=== PATIENT | male | born 1970 | race Caucasian/White ===

== ENCOUNTER 2017-08-13 05:44 | Day surgery (SDC) | payer MEDICARE ==
--- NOTE | ~2017-08-13 | OP ---
PATIENT NAME: KRISTY SUOSA JR MEDICAL RECORD: [id number] :72 LOCATION:[place] ADMISSION DATE: SURGEON: JUAN A SUN MD DATE OF OPERATION: 08/13/2017 PREOPERATIVE DIAGNOSIS: End-stage renal disease and dependence on hemodialysis with insulin-dependent diabetes. POSTOPERATIVE DIAGNOSES: End-stage renal disease and dependence on hemodialysis with insulin-dependent diabetes. OPERATION PERFORMED: Creation of a left upper extremity radiocephalic wrist Jacky AV fistula. SURGEON: Juan A Sun MD ANESTHESIA: Regional nerve block and IV sedation and monitored per CERTIFIED WELLNESS PROGRAM MANAGER. PREOPERATIVE NOTE: Ms. Sousa is a 46-year-old white male diabetic with end-stage renal disease who requires long-term dialysis access. DESCRIPTION OF PROCEDURE: With the patient under regional block and sedation, in supine position, the left arm was prepped and draped in sterile manner, nitroglycerin paste was applied to the intact skin of the arm and forearm, and a Flor drain was used as a proximal venous tourniquet. The veins of his arm was then examined with a duplex ultrasound and I found that the cephalic vein at the wrist was of good caliber and patent and that he would be a suitable candidate for a radiocephalic fistula. The radial artery was noted to have considerable calcifications within the wall, but has a large lumen and good flow. A longitudinal incision was made through which the vessels were exposed and treated with topical papaverine. The artery was encircled proximally and distally with Silastic loops. The vein was fully mobilized, distally clamped and divided and beveled, and it was ligated distally with Vicryl. The vein was flushed with heparinized saline and hydrostatically distended to prepare for anastomosis. The radial artery was opened and flushed proximally and distally with heparinized saline and end to vein to side of artery anastomosis was then performed with running 7-0 Prolene. When completed, the suture line first was treated with Evicel and after satisfactory time had elapsed for the material to cure, the occluding loops and clamps were released, and excellent flow was established in the fistula and the suture line was hemostatic. The ulnar artery was patent to Doppler examination with a wide open palmar arch and a considerable reversal of flow in the palmar arch and distal radial artery. The hand remained warm and pink throughout. At least at this stage, there is no sign of ischemia. The wound was then irrigated with Ancef and gentamicin solution. Hemostasis deemed adequate, the wound was closed with interrupted inverted 3-0 Vicryl and then running intracuticular 4-0 Monocryl and Dermabond glue. It was dressed with Maxorb Ag, Tegaderm, and Cavilon skin prep and the patient awakened and taken to the recovery room. He will come back to see me in my office next week. Meanwhile going home later today after a brief observation postop, he will continue all of the same medications and renal diabetic diet, dialysis schedule, and resume activities as tolerated. He is to leave the initial operative dressing intact and he can wash over with soap and water. I will plan to remove that dressing when he sees me in the office next week. He OPERATIVE REPORT [id number] KRISTY SOUSA JR has a block which should eliminate any immediate postoperative pain for pain over the next couple of days after that wears off. I have left him a prescription for 10 [place] 5/325 tablets and plan no additional prescriptions. My expectations are that despite the radial artery calcification, there was good flow in the fistula and I believe, it will mature. We must be alert and observe for possible development of ischemic steal symptoms which might necessitate ligation of the radial artery distal to the anastomosis. TRANSINT:[id number] Voice Confirmation ID: [id number] DOCUMENT ID: [id number] JUAN A SUN MD at 1459 CC: KRISTY JACINTO MD [id number] DICTATION DATE: 08/13/17 1301 MANAGER COMMODITIES: 08/13/17 1443 [facility] 08/13/17 [facility] [address] [place] [address]
[2017-08-13 06:45] LABS: BASOPHILS 0.1 % (0-2); EOSINOPHILS 4.5 % (0-7); HEMATOCRIT 28.4 % (42.0-54.0); HEMOGLOBIN 9.6 g/dL (13.5-17.5); IMMATURE GRANULOCYTES 0.4 % (0-5); LYMPHOCYTES 11.7 % (15-50); MCH 29.1 pg (26.0-34.0); MCHC 33.8 g/dL (31.0-37.0); MCV 86.1 fL (80.0-100.0); MEAN PLATELET VOLUME 9.2 fL (7.4-10.4); MONOCYTES 4.4 % (2-11); NEUTROPHILS 78.9 % (40-80); PLATELET COUNT 148 10x3/uL (130-400); RDW 14.4 % (11.5-14.5)
[2017-08-13 07:08] LABS: ANION GAP 16.3 mmol/L (8-16); CARBON DIOXIDE 26.1 mmol/L (21.0-32.0); CREATININE - SERUM 7.3 mg/dL (0.6-1.3); POTASSIUM - SERUM 3.4 mmol/L (3.5-5.1)
[2017-08-13 07:21] LABS: APTT 31.4 SECONDS (22.8-39.4); INR 1.02 (0.85-1.17)
[2017-08-13] MEDS ORDERED: NORVASC10 MG PO (08:17)
[2017-08-13] MEDS ORDERED: COREG25 MG PO (08:17)
[2017-08-13] MEDS ORDERED: ZESTRIL10 MG PO (08:18)
[2017-08-13] MEDS ORDERED: LASIX80 MG PO (08:18)
[2017-08-13] MEDS ORDERED: RENVELA800 MG PO (08:19)
[2017-08-13] MEDS ORDERED: PROTONIX40 MG PO (08:19)
[2017-08-13] MEDS ORDERED: CARDURA4 MG PO (08:20)
[2017-08-13 08:29] VITALS: BMI 30.7
[2017-08-13] MEDS ORDERED: HYDROCODON-ACE1 EAC7 PO (12:32)
[2017-11-08] MEDS ORDERED: BAYER CHEWABLE81 MG PO (06:52)
[2017-11-08] MEDS ORDERED: FERROCITE PLUS1 CAP PO (06:53)
[2017-11-08] MEDS ORDERED: HYDROCODON-ACE1 EAC7 PO (12:20)
== END 2017-08-13 14:30 | disposition home or self-care (01) ==
LOC: D.OPS 05:44
PROVIDERS: Surgery
DX: I12.0 Hypertensive chronic kidney disease with stage 5 chronic kidney disease or end stage renal disease (principal); N18.6 End stage renal disease; Z99.2 Dependence on renal dialysis; Z01.812 Encounter for preprocedural laboratory examination

== ENCOUNTER → 2017-11-08 05:10 | Day surgery (SDC) | payer MEDICARE ==
[~2017-11-08] VITALS: Ht 167.6 cm; Wt 84.1 kg
--- NOTE | ~2017-11-08 | OP ---
PATIENT NAME: KRISTY SOUSA JR MEDICAL RECORD: [id number] :72 LOCATION:[place] ADMISSION DATE: SURGEON: JUAN A SUN MD DATE OF OPERATION: 11/08/2017 REFERRING PHYSICIAN: Kristy Smith MD PREOPERATIVE DIAGNOSES: End-stage renal disease and dependence on hemodialysis with failure to mature left radiocephalic arteriovenous fistula. OPERATION PERFORMED: Left radiocephalic AV fistulogram with balloon angioplasty of the body of the vein and the arterial anastomosis and also selective catheterization of the left radial artery and extensive balloon angioplasty of the radial artery from its origin in the brachial artery to the arterial anastomosis at the wrist. Then, open ligation of multiple diverting tributaries. SURGEON: Juan A Sun MD ANESTHESIA: General with LMA per VETERANS EMPLOYMENT REPRESENTATIVE. PREOPERATIVE NOTE: This patient has had a left radiocephalic fistula for some time, which has maintained patency and enlarged, but is still very soft and has poor arterial pressures and poor augmentation. I saw him recently at [facility] and after an angiogram recommended that he have ligation of tributaries and other indicated procedures. He is brought to the hospital today for an open procedure. DESCRIPTION OF PROCEDURE: Under general anesthesia, the patient was prepped and draped in a sterile manner and the fistula was accessed near the elbow with micropuncture technique directed distally towards the arterial anastomosis. A 6-North Korean introducer was placed. A fistulogram was performed, which revealed areas of stenosis within the draining cephalic vein between the wrist and the mid forearm with multiple large diverting tributaries which appeared to divert a significant degree of flow. Also, there was what appeared to be an arterial anastomotic stenosis and a very small distal radial artery and no filling of the proximal radial artery, proximal to the arterial anastomosis. Note, the mini stick access of the fistula was done with ultrasound guidance and a duplex ultrasound examination continued and revealed extensive calcification of the radial artery from elbow to wrist. I dilated the body of the fistula with a 7-mm angioplasty balloon and dilated the arterial anastomosis with a 4-mm diameter balloon. I was able to cross the anastomosis with a Glidewire and glide catheter and parked the catheter in the proximal radial artery and perform selective radial artery arteriogram, which revealed a very small vessel with almost no distal flow around the 5-North Korean catheter. The radial artery was subsequently dilated from its origin to the arterial anastomosis with a 4 mm diameter angioplasty balloon and repeat contrast studies revealed improved flow in a larger caliber radial artery with better flow across the arterial anastomosis into the fistula. I made 2 incisions then to expose tributaries, 3 separate large draining tributaries were multiple ligated with 2-0 silk. A few clips were necessary for hemostasis and also some Vicryl ties. The wound was irrigated with 0.25% Marcaine without epinephrine and the 2 wounds were irrigated with Marcaine and then closed with interrupted inverted 3-0 Vicryl and running intracuticular 4-0 Monocryl and Dermabond glue. The 2 incisions were then dressed with Maxorb Ag, Tegaderm, and Cavilon skin prep. The 6-North Korean OPERATIVE REPORT [id number] KRISTY SOUSA JR sheath at the mid forearm was removed and hemostasis obtained with a pursestring 4-0 Prolene suture and a period of direct pressure. That site was then dressed with an Avitene, Ultrafoam pad, Tegaderm, and Cavilon skin prep. The patient was awakened and with a functioning fistula taken to the recovery room. In the recovery room, he was noted to have a good pulse and bruit over the fistula. It was my opinion, however, that the fistula flow is at this point at least not dramatically or possibly even significantly improved and that would be due to the small caliber heavily diseased radial artery. The patient will be discharged to home today and return to see me in my office in 2 weeks. If this fistula fails or does not clinically improve with better flows and pressures, then I think we will need to consider creating a more proximal fistula or we could place a forearm graft and a delay creating a fistula in the upper arm. Blood loss was about 5 cc and unreplaced. Sponges, instruments, and needles were accounted for. No drain was used and no surgical specimen was submitted for histopathology. TRANSINT:[id number] Voice Confirmation ID: [id number] DOCUMENT ID: [id number] JUAN A SUN MD at 2050 CC: KRISTY SMITH MD [id number] DICTATION DATE: 11/08/17 1249 ENFORCEMENT SAFETY OFFICER: 11/08/17 1318 [facility] 11/08/17 [facility] [address] [place] [address]
[~2017-11-08 05:10] MED LIST: BAYER CHEWABLE81 MG PO; CARDURA4 MG PO; COREG25 MG PO; FERROCITE PLUS1 CAP PO; HYDROCODON-ACE1 EAC7 PO; LASIX80 MG PO; NORVASC10 MG PO; PROTONIX40 MG PO; RENVELA800 MG PO; ZESTRIL10 MG PO
[2017-11-08 06:27] LABS: BASOPHILS 0.2 % (0-2); EOSINOPHILS 5.1 % (0-7); HEMATOCRIT 23.5 % (42.0-54.0); HEMOGLOBIN 8.1 g/dL (13.5-17.5); IMMATURE GRANULOCYTES 0.4 % (0-5); LYMPHOCYTES 14.2 % (15-50); MCH 28.4 pg (26.0-34.0); MCHC 34.5 g/dL (31.0-37.0); MCV 82.5 fL (80.0-100.0); MEAN PLATELET VOLUME 9.1 fL (7.4-10.4); MONOCYTES 5.5 % (2-11); NEUTROPHILS 74.6 % (40-80); PLATELET COUNT 82 10x3/uL (130-400); RBC 2.85 10x6/uL (4.20-6.10); RDW 13.7 % (11.5-14.5); WBC 4.9 10x3/uL (4.8-10.8)
[2017-11-08 06:48] LABS: INR 1.06 (0.85-1.17); PROTIME 13.4 SECONDS (11.6-15.0)
[2017-11-08 06:54] VITALS: Ht 167.6 cm; Wt 84.1 kg
[2017-11-08 06:56] LABS: ANION GAP 16.7 mmol/L (8-16); CALCIUM 7.6 mg/dL (8.5-10.1); CARBON DIOXIDE 24.9 mmol/L (21.0-32.0); POTASSIUM - SERUM 3.6 mmol/L (3.5-5.1)
[2017-11-08 07:08] LABS: PLATELET ESTIMATE DECREASED
== END | disposition home or self-care (01) ==
LOC: D.OPS 05:10
PROVIDERS: Anesthesiology
DX: T82.590A Other mechanical complication of surgically created arteriovenous fistula, initial encounter (principal); N18.6 End stage renal disease; Z99.2 Dependence on renal dialysis; Z01.812 Encounter for preprocedural laboratory examination

== ENCOUNTER 2019-03-03 11:50 | Inpatient (IN) | payer MEDICARE ==
[~2019-03-03] VITALS: Ht 167.6 cm; Wt 78.6 kg
[2019-03-03] MEDS ORDERED: ZESTRIL40 MG PO (12:30)
[2019-03-03] MEDS ORDERED: HYDRALAZINE HC100 MG PO (12:31)
[2019-03-03] MEDS ORDERED: ROCALTROL0.25 MCG PO (12:32)
[2019-03-03] MEDS ORDERED: FERRIC CITRATE210 MG PO (12:34)
[2019-03-03 12:45] LABS: BASOPHILS 0.2 % (0-2); EOSINOPHILS 1.2 % (0-7); HEMATOCRIT 20.1 % (42.0-54.0); IMMATURE GRANULOCYTES 0.2 % (0-5); LYMPHOCYTES 7.9 % (15-50); MCH 28.2 pg (26.0-34.0); MCHC 33.3 g/dL (31.0-37.0); MCV 84.5 fL (80.0-100.0); MONOCYTES 4.2 % (2-11); NEUTROPHILS 86.3 % (40-80); RBC 2.38 10x6/uL (4.20-6.10); RDW 14.3 % (11.5-14.5); WBC 5.2 10x3/uL (4.8-10.8)
[2019-03-03 12:51] LABS: PLATELET COUNT 112 10x3/uL (130-400)
[2019-03-03 12:53] LABS: HEMOGLOBIN 6.7 g/dL (13.5-17.5)
[2019-03-03 13:30] LABS: ALBUMIN 2.8 g/dL (3.4-5.0); ANION GAP 16.4 mmol/L (8-16); BILIRUBIN - TOTAL 0.47 mg/dL (0.2-1.3); CALCIUM 8.6 mg/dL (8.5-10.1); CARBON DIOXIDE 29.3 mmol/L (21.0-32.0); CREATININE - SERUM 11.4 mg/dL (0.6-1.3); POTASSIUM - SERUM 4.7 mmol/L (3.5-5.1); PROTEIN - SERUM 6.5 g/dL (6.4-8.2)
[2019-03-03 13:31] VITALS: BP 189/88; BMI 29.3
[2019-03-03 13:56] LABS: APTT 31.1 SECONDS (22.8-39.4); INR 1.2 (0.85-1.17); PROTIME 14.7 SECONDS (11.6-15.0)
[2019-03-03 15:42] VITALS: BP 198/92
--- NOTE | 2019-03-03 17:56 | NUR ---
22 G PIV STARTED IN RIGHT FOREARM.
--- NOTE | 2019-03-03 19:50 | NUR ---
UNIT OF BLOOD IS BEING ADMINISTERED.
[2019-03-03 21:01] VITALS: BP 175/73
[2019-03-04] VITALS (7 sets, daily range): BP systolic 153–191; BP diastolic 50–62; Ht 167.6 cm; Wt 78.6 kg
[2019-03-04 04:26] LABS: BASOPHILS 0 % (0-2); HEMATOCRIT 21.4 % (42.0-54.0); IMMATURE GRANULOCYTES 0.2 % (0-5); LYMPHOCYTES 12.5 % (15-50); MCH 27.7 pg (26.0-34.0); MCHC 33.2 g/dL (31.0-37.0); MCV 83.6 fL (80.0-100.0); MEAN PLATELET VOLUME 8.6 fL (7.4-10.4); MONOCYTES 8.2 % (2-11); NEUTROPHILS 76.1 % (40-80); RBC 2.56 10x6/uL (4.20-6.10); RDW 14.4 % (11.5-14.5)
[2019-03-04 04:37] LABS: HEMOGLOBIN 7.1 g/dL (13.5-17.5); INR 1.19 (0.85-1.17); PLATELET COUNT 135 10x3/uL (130-400); PROTIME 14.6 SECONDS (11.6-15.0)
[2019-03-04 04:55] LABS: ALBUMIN 2.4 g/dL (3.4-5.0); BILIRUBIN - TOTAL 0.39 mg/dL (0.2-1.3); CALCIUM 8.2 mg/dL (8.5-10.1); CARBON DIOXIDE 28.8 mmol/L (21.0-32.0); CREATININE - SERUM 11.7 mg/dL (0.6-1.3); POTASSIUM - SERUM 4.8 mmol/L (3.5-5.1); PROTEIN - SERUM 6.1 g/dL (6.4-8.2)
--- NOTE | 2019-03-04 09:37 | NUR ---
SPOKE TO MAGGY HUERTA FROM SHE STATES SHE CAN DO PT'S PARACENTESIS AT AROUND 1100 AND TO DO HD AFTER. I VEBRLAIZED UNDERSTANDING AND STATED TO THEM WHAT MAGGY HUERTA STATED TO ME AND THEY VEBALIZED UNDERSTANDING. STATED THIS TO PT AND PT'S DAUGHTER AND THEY BOTH VERBALIZED UNDERSTANDING. PT STTAES HE WANTS RGULAR FOOD TRAY ONCE HE CAN EAT AGAIN. I VERBALIZED UNDERSTANDING AND STATED I WILL SPEAK WITH MD ABOUT THIS. PT VEBALIZED UNDERSTANDING. AM MEDS GIVEN PT STATES HE TAKES ALL BP MEDS ON HD DAYS.
--- NOTE | 2019-03-04 10:45 | NUR ---
PT TAKEN FOR PARACENTESIS VIA BED.
--- NOTE | 2019-03-04 11:09 | NUR ---
SPOKE WITH MARVIN RECORDS TECHNICIAN AND SHE STATES PT CAN HAVE RENAL DIET AFTER PARACENTESIS.
--- NOTE | 2019-03-04 11:48 | NUR ---
I have reviewed this patient and I concur with the Shift Assessment completed by the Licensed Practical Nurse today this shift.
--- NOTE | 2019-03-04 12:00 | NUR ---
PT RETURNED FORM PARACENTESIS. ALERT AND ORIENTED. VS STABLE. PT TO EAT THEN GO TO HD.
[2019-03-04 12:35] LABS: PROTEIN - BODY FLUID 4.4 G/DL
--- NOTE | 2019-03-04 13:24 | NUR ---
PT TAKEN TO DIALYSIS VIA WC.
--- NOTE | 2019-03-04 13:39 | NUR ---
1 UNIT OF PRBC TAKEN TO JAJA IN DIALYSIS.
[2019-03-04 14:14] LABS: MACROPHAGES BF 69 %; MESOTHELIALS BF 7 %; NEUT - BF 5 %
--- NOTE | 2019-03-04 17:24 | NUR ---
PT SITTING IN RECLINER CHAIR EATING DINNER.
--- NOTE | 2019-03-04 19:57 | NUR ---
PT CARE ASSUMED. PT IN BED RR EVEN AND UNLABORED. PT C/O HEADACHE, PROVIDED TYLENOL. NO S/S OF DISTRESS NOTED. NO FURTHER VOICED C/O OR CONCERNS. CALL LIGHT IN REACH. WILL CTM.
[2019-03-05] VITALS: BP 184/57
[2019-03-05 04:00] VITALS: BP 182/56
[2019-03-05 06:04] LABS: ANION GAP 11.7 mmol/L (8-16); CALCIUM 8.6 mg/dL (8.5-10.1); CARBON DIOXIDE 29.7 mmol/L (21.0-32.0); POTASSIUM - SERUM 4.4 mmol/L (3.5-5.1)
[2019-03-05 06:15] LABS: CREATININE - SERUM 7.9 mg/dL (0.6-1.3); PHOSPHOROUS 5.8 mg/dL (2.5-4.9)
[2019-03-05 06:19] LABS: BASOPHILS 0.2 % (0-2); EOSINOPHILS 1.5 % (0-7); HEMATOCRIT 25.5 % (42.0-54.0); HEMOGLOBIN 8.4 g/dL (13.5-17.5); IMMATURE GRANULOCYTES 0.7 % (0-5); LYMPHOCYTES 5.7 % (15-50); MCH 27.1 pg (26.0-34.0); MCHC 32.9 g/dL (31.0-37.0); MCV 82.3 fL (80.0-100.0); MEAN PLATELET VOLUME 8.7 fL (7.4-10.4); MONOCYTES 7.8 % (2-11); NEUTROPHILS 84.1 % (40-80); PLATELET COUNT 136 10x3/uL (130-400); RDW 16.3 % (11.5-14.5)
--- NOTE | 2019-03-05 07:30 | NUR ---
A/A/OX4. SITTING UP ON SIDE OF BED WITH NO COMPLAINTS OR REQUESTS VOICED. SL PATENT TO RIGHT FOREARM WITH REDNESS OR EDEMA AT SITE. ASSESSMENT COMPLETED AND WILL CONTINUE POC.
[2019-03-05 08:00] VITALS: BP 197/58
[2019-03-05 08:11] LABS: HEPATITIS C ANTIBODY 0.1 S/CO RAT (0.0-0.9)
--- NOTE | 2019-03-05 11:17 | NUR ---
STOOL SPECIMEN OBTAINED AND TAKEN TO LAB
[2019-03-05 12:00] VITALS: BP 179/82
--- NOTE | 2019-03-05 13:00 | NUR ---
SCAN OF SPLEEN AND LIVER PERFORMED.
--- NOTE | 2019-03-05 13:30 | NUR ---
I have reviewed this patient and I concur with the Shift Assessment completed by the Licensed Practical Nurse today this shift.
[2019-03-05 16:18] VITALS: BP 168/74
--- NOTE | 2019-03-05 19:26 | NUR ---
PT CARE ASSUMED. BEDSIDE SHIFT REPORT COMPLETE. PT IN BED RR EVEN AND UNLABORED ON RA. NO S/S OF DISTRESS NOTED. NO VOICED C/O OR CONCERNS NOTED AT THIS TIME. FAMILY AT BEDSIDE. CALL LIGHT IN REACH. WILL CTM.
[2019-03-05 20:00] VITALS: BP 184/84
--- NOTE | 2019-03-05 21:18 | NUR ---
PT CAME TO NURSES STATION C/O PAIN AT IV SITE. IV D/C WITH CATHETER TIP INTACT. PT REFUSES ANOTHER PIV PLACEMENT AT THIS TIME.
[2019-03-06 04:00] VITALS: BP 151/61
--- NOTE | 2019-03-06 04:10 | NUR ---
PT HAS TAKEN OFF HIS TELEMETRY AND REFUSES TO PUT BACK ON.
[2019-03-06 06:40] LABS: BASOPHILS 0 % (0-2); EOSINOPHILS 3.4 % (0-7); HEMATOCRIT 25.8 % (42.0-54.0); HEMOGLOBIN 8.4 g/dL (13.5-17.5); IMMATURE GRANULOCYTES 0.5 % (0-5); LYMPHOCYTES 7.3 % (15-50); MCH 27.2 pg (26.0-34.0); MCHC 32.6 g/dL (31.0-37.0); MCV 83.5 fL (80.0-100.0); MEAN PLATELET VOLUME 8.6 fL (7.4-10.4); NEUTROPHILS 81.8 % (40-80); PLATELET COUNT 131 10x3/uL (130-400); RBC 3.09 10x6/uL (4.20-6.10); RDW 16.2 % (11.5-14.5); WBC 5.9 10x3/uL (4.8-10.8)
--- NOTE | 2019-03-06 06:45 | NUR ---
PT CAME TO NURSES STATION AND ALERTED NURSE THAT HE IS GOING TO WALK DOWN TO CAFE WITH FRIEND.
[2019-03-06 06:53] LABS: CARBON DIOXIDE 28.6 mmol/L (21.0-32.0); CREATININE - SERUM 9.7 mg/dL (0.6-1.3); PHOSPHOROUS 6.4 mg/dL (2.5-4.9); POTASSIUM - SERUM 4.6 mmol/L (3.5-5.1)
[2019-03-06 08:16] VITALS: BP 168/63
--- NOTE | 2019-03-06 08:20 | NUR ---
PT RETURNED TO FLOOR FROM [place]FE. SHIFT ASSESSMENT PERFORMED. DENIES ANY NEEDS AT THIS TIME, WILL CONT TO FOLLOW POC
--- NOTE | 2019-03-06 09:18 | MORECARE ---
CASE MANAGEMENT DISCHARGE SUMMARY PATIENT: KRISTY SOUSA JR UNIT: [id number] ADM DATE: 03/03/19 AGE: 48 : 72 SEX: M ROOM/BED: D.2138 AUTHOR: HANS SCHAFFER PHYSICIAN: REFERRING PHYSICIAN: KRISTY JACINTO MD DATE OF SERVICE: 03/06/19 Discharge Plan Patient Name: KRISTY SOUSA Facility: [facility]:[place] : 1970 Planned Disposition: Home Anticipated Discharge Date: 03/06/19 Discharge Date: Expected LOS: 3 Initial Reviewer: [email or web address] Initial Review Date: 03/06/2019 Generated: 03/06/19 10:18 am Coverage Notice Reviewer: [id number] - Hood Acharya Notice Issued Date-Time: 03/06/2019 9:50 Notice Type: IM Discharge Notice Notice Delivered To: Patient Relationship to Patient: Balancer Name: Delivery Method: HAND - Hand Delivered Theresa Days: Prior Verbal Notification: Recipient Understood Notice: Yes Recipient Signature: Yes Med Rec Note Co-signed by Attending: Coverage Notice Comment: Patient Name: KRISTY SOUSA Page [phone] at 0918 All edits/amendments must be made on the electronic document DICTATION DATE: 03/06/19917 DRYING SUPERVISOR: LAISHA 03/06/19917 RPT#: [id number] DC DATE: STATUS: ADM IN [facility] [address] [place] [address] END OF REPORT
--- NOTE | 2019-03-06 09:25 | MORECARE ---
CASE MANAGEMENT DISCHARGE SUMMARY PATIENT: KRISTY SOUSA JR UNIT: [id number] ADM DATE: 03/03/19 AGE: 48 : 71 SEX: M ROOM/BED: D.2138 AUTHOR: HASN SCHAFFER PHYSICIAN: REFERRING PHYSICIAN: KRISTY JACINTO MD DATE OF SERVICE: 03/06/19 Discharge Plan Patient Name: KRISTY SOUSA Facility: [facility]:[place] : 1970 Planned Disposition: Home Anticipated Discharge Date: 03/06/19 Discharge Date: Expected LOS: 3 Initial Reviewer: [email or web address] Initial Review Date: 03/06/2019 Generated: 03/06/19 10:24 am DCPIA - Discharge Planning Initial Assessment Updated by ANDREW: Hood Acharya on 03/06/19 9:20 am * Is the patient Alert and Oriented? Yes * How many steps to enter\exit or inside your home? NONE * PCP [facility] * [facility] * Preadmission Environment Home with Family * ADLs Independent * Equipment None * Other Equipment [facility] - MEDICAL EQUIPMENT PROVIDER PREFERENCE * List name and contact numbers for known caregivers / representatives who currently or will assist patient after discharge: LAURI SOUSA, SPOUSE, * Verbal permission to speak to the caregivers and representatives has been obtained from the patient. Yes * Community resources currently utilized Other * Please name any agencies selected above. HOME HEMODIALYSIS, 15 HOURS PER WEEK,(3-5 DAYS PER WEEK, DEPENDING ON PT'S WEIGHT) * Additional services required to return to the preadmission environment? No * Can the patient safely return to the preadmission environment? Yes * Has this patient been hospitalized within the prior 30 days at any hospital? No Coverage Notice Reviewer: [id number] - Hood Acharya Notice Issued Date-Time: 03/06/2019 9:50 Notice Type: IM Discharge Notice Notice Delivered To: Patient Relationship to Patient: Data Developer Name: Delivery Method: HAND - Hand Delivered Theresa Days: Prior Verbal Notification: Recipient Understood Notice: Yes Recipient Signature: Yes Med Rec Note Co-signed by Attending: Coverage Notice Comment: Last DP export: 03/06/19 8:18 a Patient Name: KRISTY SOUSA Page [phone] at 0925 All edits/amendments must be made on the electronic document DICTATION DATE: 03/06/19923 BILINGUAL SALES CONSULTANT: LAISHA 03/06/19923 RPT#: [id number] DC DATE: STATUS: ADM IN [facility] [address] [place] [address] END OF REPORT
--- NOTE | 2019-03-06 09:32 | MORECARE ---
CASE MANAGEMENT DISCHARGE SUMMARY PATIENT: KRISTY SOUSA JR UNIT: [id number] ADM DATE: 03/03/19 AGE: 48 : 71 SEX: M ROOM/BED: D.5401 AUTHOR: HANS SCHAFFER PHYSICIAN: REFERRING PHYSICIAN: KRISTY JACINTO MD DATE OF SERVICE: 03/06/19 Discharge Plan Patient Name: KRISTY SOUSA Facility: [facility]:[place] : 1970 Planned Disposition: Home Anticipated Discharge Date: 03/06/19 Discharge Date: Expected LOS: 3 Initial Reviewer: [email or web address] Initial Review Date: 03/06/2019 Generated: 03/06/19 10:32 am Comments DCP- Discharge Planning Updated by [email or web address]: Hood Acharya on 03/06/19 8:[address] Patient Name: KRISTY SOUSA Admission Status: Urgent Accout number: [id number] Admission Date: 03-03-2019 : 1970 Admission Diagnosis:NAUSEA WITH VOMITING, UNSPECIFIED Attending: KRISTY JACINTO Current LOS: 3 Anticipated DC Date: 03-06-2019 Planned Disposition: Home Primary Insurance: [employer]NA CHOICE PPO MCR [employer] Discharge Planning Comments: CM RECEIVED DISCHARGE PLANNING ORDER, MET WITH PT AND HIS FRIEND IN ROOM TO DISCUSS DISCHARGE PLANNING AND NEEDS. KRISTY SOUSA provided verbal consent to discuss current and ongoing needs with/in the presence of: FRIEND, MITRA HENDRIX. PT REPORTS LIVING AT HOME INDEPENDENTLY WITH HIS . PT HAS HOME DIALYSIS EQUIPMENT WITH NO MEDICAL EQUIPMENT PROVIDER PREFERENCE. PT HAS AND NO OUTSIDE SERVICES ASSISTING IN THE HOME. PT DOES HOME DIALYSIS 3 TO 4 DAYS PER WEEK, DEPENDING ON HIS WEIGHT. PT REPORTS HIS DAUGHTER TO BE A NURSE AND SHE ASSISTS WITH MEDICATION MANAGEMENT AND HOME DIALYSIS. PT'S HOME HEMODIALYSIS SUPPLIES ARE DELIVERED ON 2 PALLETS MONTHLY TO PT'S HOME. CM DISCUSSED AVAILABILITY OF HOME HEALTH, REHAB SERVICES AND MEDICAL EQUIPMENT. PT DENIES DISCHARGE NEEDS, REPORTS HIS FRIEND IS HERE AND WILL PICK HIM UP FOR DISCHARGE HOME TODAY AFTER DIALYSIS. IMPORTANT MESSAGE FROM MEDICARE PROVIDED AND EXPLAINED. PT PLANS TO DISCHARGE HOME WITH FAMILY, FRIEND IS HERE TO TRANSPORT HOME. PT DENIES DISCHARGE NEEDS. CM TO FOLLOW AND ASSIST IF NECESSARY. Binding Printer: Hood Acharya DCPIA - Discharge Planning Initial Assessment Updated by [email or web address]: Hood Acharya on 03/06/19 9:20 am * Is the patient Alert and Oriented? Yes * How many steps to enter\exit or inside your home? NONE * PCP [facility] * [facility] [place] * Preadmission Environment Home with Family * ADLs Independent * Equipment None * Other Equipment [facility] - MEDICAL EQUIPMENT PROVIDER PREFERENCE * List name and contact numbers for known caregivers / representatives who currently or will assist patient after discharge: LAURI SOUSA, SPOUSE, * Verbal permission to speak to the caregivers and representatives has been obtained from the patient. Yes * Community resources currently utilized Other * Please name any agencies selected above. HOME HEMODIALYSIS, 15 HOURS PER WEEK,(3-5 DAYS PER WEEK, DEPENDING ON PT'S WEIGHT) * Additional services required to return to the preadmission environment? No * Can the patient safely return to the preadmission environment? Yes * Has this patient been hospitalized within the prior 30 days at any hospital? No Coverage Notice Reviewer: [id number] - Hood Acharya Notice Issued Date-Time: 03/06/2019 9:50 Notice Type: IM Discharge Notice Notice Delivered To: Patient Relationship to Patient: Geophysical Computer Name: Delivery Method: HAND - Hand Delivered Theresa Days: Prior Verbal Notification: Recipient Understood Notice: Yes Recipient Signature: Yes Med Rec Note Co-signed by Attending: Coverage Notice Comment: Last DP export: 03/06/19 8:25 a Patient Name: KRISTY SOUSA Page [phone] at 0932 All edits/amendments must be made on the electronic document DICTATION DATE: 03/06/19931 RN WOUND CARE: LAISHA 03/06/19931 RPT#: [id number] DC DATE: STATUS: ADM IN [facility] [address] [place] [address] END OF REPORT
--- NOTE | 2019-03-06 10:07 | NUR ---
ASSISTED PT DOWN TO DIALYSIS
[2019-03-06] MEDS ORDERED: RESTORIL15 MG PO (10:17)
[2019-03-06] MEDS ORDERED: NEPHRO-VITE RX1 TAB PO (10:18)
--- NOTE | 2019-03-06 12:35 | NUR ---
DISCHARGE INSTRUCTIONS REVIEWED WITH PT AND ALL QUESTIONS ANSWERED. TELEMETRY REMOVED AND GIVEN TO CLIENT APPLICATION SUPPORT ENGINEER. ASSISTED PT TO FRONT OF HOSPITAL VIA WHEELCHAIR.
--- NOTE | 2019-03-09 09:02 | MORECARE ---
CASE MANAGEMENT DISCHARGE SUMMARY PATIENT: KRISTY SOUSA JR UNIT: [id number] ADM DATE: 03/03/19 AGE: 48 : 72 SEX: M ROOM/BED: D.2742 AUTHOR: HANS SCHAFFER PHYSICIAN: REFERRING PHYSICIAN: KRISTY JACINTO MD DATE OF SERVICE: 03/09/19 Discharge Plan Patient Name: KRISTY SOUSA Facility: [facility]:[place] : 1970 Planned Disposition: Home Anticipated Discharge Date: 03/06/19 Discharge Date: 03/06/2019 Expected LOS: 3 Initial Reviewer: [email or web address] Initial Review Date: 03/06/2019 Generated: 03/09/19 10:02 am Comments DCP- Discharge Planning Updated by [email or web address]: Hood Acharya on 03/06/19 8:[address] Patient Name: KRISTY SOUSA Admission Status: Urgent Accout number: [id number] Admission Date: 03-03-2019 : 1970 Admission Diagnosis:NAUSEA WITH VOMITING, UNSPECIFIED Attending: KRISTY JACINTO Current LOS: 3 Anticipated DC Date: 03-06-2019 Planned Disposition: Home Primary Insurance: HUMANA CHOICE PPO MCR [facility] Discharge Planning Comments: CM RECEIVED DISCHARGE PLANNING ORDER, MET WITH PT AND HIS FRIEND IN ROOM TO DISCUSS DISCHARGE PLANNING AND NEEDS. KRISTY SOUSA provided verbal consent to discuss current and ongoing needs with/in the presence of: FRIEND, MITRA HENDRIX. PT REPORTS LIVING AT HOME INDEPENDENTLY WITH HIS . PT HAS HOME DIALYSIS EQUIPMENT WITH NO MEDICAL EQUIPMENT PROVIDER PREFERENCE. PT HAS AND NO OUTSIDE SERVICES ASSISTING IN THE HOME. PT DOES HOME DIALYSIS 3 TO 4 DAYS PER WEEK, DEPENDING ON HIS WEIGHT. PT REPORTS HIS DAUGHTER TO BE A NURSE AND SHE ASSISTS WITH MEDICATION MANAGEMENT AND HOME DIALYSIS. PT'S HOME HEMODIALYSIS SUPPLIES ARE DELIVERED ON 2 PALLETS MONTHLY TO PT'S HOME. CM DISCUSSED AVAILABILITY OF HOME HEALTH, REHAB SERVICES AND MEDICAL EQUIPMENT. PT DENIES DISCHARGE NEEDS, REPORTS HIS FRIEND IS HERE AND WILL PICK HIM UP FOR DISCHARGE HOME TODAY AFTER DIALYSIS. IMPORTANT MESSAGE FROM MEDICARE PROVIDED AND EXPLAINED. PT PLANS TO DISCHARGE HOME WITH FAMILY, FRIEND IS HERE TO TRANSPORT HOME. PT DENIES DISCHARGE NEEDS. CM TO FOLLOW AND ASSIST IF NECESSARY. Gameplay Engineer: Hood Acharya DCPIA - Discharge Planning Initial Assessment Updated by [email or web address]: Hood Acharya on 03/06/19 9:20 am * Is the patient Alert and Oriented? Yes * How many steps to enter\exit or inside your home? NONE * PCP [facility] * [facility]acy [facility] [place] * Preadmission Environment Home with Family * ADLs Independent * Equipment None * Other Equipment [facility] - MEDICAL EQUIPMENT PROVIDER PREFERENCE * List name and contact numbers for known caregivers / representatives who currently or will assist patient after discharge: LAURI SOUSA, SPOUSE, * Verbal permission to speak to the caregivers and representatives has been obtained from the patient. Yes * Community resources currently utilized Other * Please name any agencies selected above. HOME HEMODIALYSIS, 15 HOURS PER WEEK,(3-5 DAYS PER WEEK, DEPENDING ON PT'S WEIGHT) * Additional services required to return to the preadmission environment? No * Can the patient safely return to the preadmission environment? Yes * Has this patient been hospitalized within the prior 30 days at any hospital? No Coverage Notice Reviewer: [id number] - Hood Acharya Notice Issued Date-Time: 03/06/2019 9:50 Notice Type: IM Discharge Notice Notice Delivered To: Patient Relationship to Patient: Tumbling Machine Operator Name: Delivery Method: HAND - Hand Delivered Theresa Days: Prior Verbal Notification: Recipient Understood Notice: Yes Recipient Signature: Yes Med Rec Note Co-signed by Attending: Coverage Notice Comment: Last DP export: 03/06/19 8:32 a Patient Name: KRISTY SOUSA Page [phone] at 0902 All edits/amendments must be made on the electronic document DICTATION DATE: 03/09/19901 EMERGENCY VEHICLE OPERATOR: LAISHA 03/09/19901 RPT#: [id number] DC DATE:03/06/19 STATUS: DIS IN [facility] [address] [place] [address] END OF REPORT
--- NOTE | 2019-03-10 13:38 | EC ---
PATIENT:KRISTY SOUSA JR DATE OF SERVICE: 03/03/19 SEX: M MEDICAL RECORD: [id number] DATE OF : 72 LOCATION:D.M2 D.213 AGE OF PATIENT: 48 ADMISSION DATE: 03/03/19 REFERRING PHYSICIAN: INTERPRETING PHYSICIAN: KLAUDIA RUTHERFORD MD ECHOCARDIOGRAM REPORT ECHO CHARGES Date: CLINICAL DIAGNOSIS: ECHOCARDIOGRAPHIC MEASUREMENTS (adult normal given) AC root (d.<3.7cm) cm LV Septum d (<1.2 cm> cm Valve Excursion cm LV Septum (systole) cm Left Atria (s.<4.0cm> cm LVPW d(<1.2cm) cm RV (d.<2.3cm) cm LVPW (sytole) cm LV diastole(<5.6CM) cm MV E-F(>70mm/sec) cm LV systole cm LVOT Diameter cm MV exc.(>10mm) cm Est.ejection fraction (50-75%) % DOPPLER: LVIT cm/sec A cm/sec E cm/sec LA cm/sec RVSP mmHg LVOT cm/sec AOP1/2T m/s Asc. Ao cm/sec RVOT cm/sec RA cm/sec PA cm/sec AV Gradient Peak mmHg AV Mean mmHg AV Area cm MV Gradient Peak mmHg MV Mean mmHg MV Area cm COMMENTS: Clinical Nursing Assistant: Recovery Specialist: MARCI# Pericardial Effusion DATE OF SERVICE: FINDINGS: 1. Left ventricular chamber size is mildly dilated. Left ventricular systolic function is preserved at 55%. 2. The left atrium is mildly dilated at 4.1 cm. Right atrium and right ventricular chamber sizes are within normal limits. 3. Valvular structures have normal structure and motion. 4. Doppler interrogation reveals mild mitral regurgitation, mild tricuspid regurgitation, no other valvular insufficiency or stenosis. Pulmonary systolic ECHOCARDIOGRAM REPORT [id number] KRISTY SOUSA JR pressure is estimated at 18 mmHg. 5. No evidence of pericardial effusion or left ventricular thrombus. TRANSINT:[id number] Voice Confirmation ID: [id number] DOCUMENT ID: [id number] KLAUDIA RUTHERFORD MD at 1338 CC: [id number] DICTATION DATE: 03/03/19 1722 DRAPERY CUTTER MACHINE: 03/03/19 210 DIS IN 03/06/[address], [facility]
--- NOTE | 2019-03-11 07:21 | DS ---
PATIENT:KRISTY LOUIS JR :72 MEDICAL RECORD: [id number] DISCHARGE SUMMARY ADMISSION DATE: 03/03/19 DISCHARGE DATE: 03/06/19 HISTORY OF PRESENT ILLNESS: Mr. Louis is a 48-year-old white male with end-stage renal disease, on home dialysis, who has had increasing abdominal girth with abdominal pain. He has a history of colon cancer in the distant past without evidence of metastatic disease. Currently, is in workup for renal transplant, on home dialysis with his daughter who is a RN. He presented to the office with worsening abdominal girth as well as recurrent nausea and vomiting and blood-tinged emesis at times and due to his abdominal pain and nausea and vomiting and was admitted for the above. HOSPITAL COURSE: The patient was seen by Dr. Garza in GI and who had noted previous workup some months ago with negative endoscopy and capsule endoscopy. His hemoglobin initially was 6. He received transfusion. He had a CT scan from outpatient in [place] that had confirmed ascites with possible splenomegaly with a normal liver. He had an abdominal ultrasound here that was negative. Had a paracentesis done of 3 liters, studies of those are initially transudative. Cultures were negative. Cytology is pending. Had a liver, spleen scan that was negative for any evidence of a colloid shift. At the time of discharge, he was improved. Endoscopy was deferred since it was done recently. He did receive transfusion and dialysis. We continued him on his current medication regime. He had an echocardiogram done that was essentially negative with no pericardial effusion, ejection fraction at 55%. At the time of discharge, he was improved with no further nausea and vomiting and his pain was relieved post-paracentesis. We will follow up with his cytological studies as an outpatient. DISCHARGE DIAGNOSES: 1. Nausea and vomiting, resolved. 2. Ascites, workup thus far negative. 3. End-stage renal disease, home hemodialysis. 4. Chronic anemia. 5. Hypertension. PLAN: The patient will be discharged today. He will resume his home hemodialysis with his daughter as attendant. He will follow up with me in the office. He will be discharged on his home meds. We will consider recurrent paracentesis p.r.n. DISCHARGE MEDICATIONS: Nephro-Jayden 1 daily, clonidine 0.1 b.i.d., metoprolol 25 b.i.d., Renvela 1 packet t.i.d., Prinivil 40 q.12h, Calcitriol 0.25 daily, amlodipine 10 daily, PhosLo 2 t.i.d. He did receive IV ferrous gluconate while he was here. He will resume that at home along with his oral iron. He will continue on Coreg 25 b.i.d., hydralazine 100 t.i.d., Pepcid 20 mg daily. He will continue Epogen as an outpatient at home, doxazosin 4 mg daily, Restoril, Tylenol and Zofran on a p.r.n. basis. TRANSINT:[id number] Voice Confirmation ID: [id number] DOCUMENT ID: [id number] CC: HOME TRAINING AT [facility] DISCHARGE SUMMARY REPORT [id number] KRISTY LOUIS JR, ROBERT MD at 0721 CC: [id number] DICTATION DATE: 03/06/19 0655 HARVESTER OPERATOR: 03/07/19 0224 DIS IN 03/06/19 [id number] [place] [address]
== END 2019-03-06 12:37 | disposition home or self-care (01) | DRG 291 ==
LOC: D.M2 11:50
PROVIDERS: Internal Medicine; Internal Medicine Gastroenterology; Radiology Vascular & Interventional Radiology; Specialist; ADMIT Internal Medicine Nephrology; ATTEND Internal Medicine Nephrology
PROC: 5A1D70Z Performance of Urinary Filtration, Intermittent, Less than 6 Hours Per Day (ICD-10-PCS; 2019-03-04)
PROC: 0W9G3ZZ Drainage of Peritoneal Cavity, Percutaneous Approach (ICD-10-PCS; principal; 2019-03-04 11:00)
DX: I50.814 Right heart failure due to left heart failure (principal); N18.6 End stage renal disease; I13.2 Hypertensive heart and chronic kidney disease with heart failure and with stage 5 chronic kidney disease, or end stage renal disease; I50.33 Acute on chronic diastolic (congestive) heart failure; D63.1 Anemia in chronic kidney disease; Z86.73 Personal history of transient ischemic attack (TIA), and cerebral infarction without residual deficits

== ENCOUNTER 2019-03-12 11:14 | Outpatient (CLI) | payer MEDICARE ==
[~2019-03-12] VITALS: Ht 167.6 cm; Wt 86.4 kg
[~2019-03-12 11:14] MED LIST changes: +FERRIC CITRATE210 MG PO; +HYDRALAZINE HC100 MG PO; +NEPHRO-VITE RX1 TAB PO; +RESTORIL15 MG PO; +ROCALTROL0.25 MCG PO; +ZESTRIL40 MG PO
[2019-03-12 11:28] LABS: HEMATOCRIT 27.5 % (42.0-54.0); HEMOGLOBIN 8.8 g/dL (13.5-17.5); LYMPHOCYTES 10.3 % (15-50); MCV 87.6 fL (80.0-100.0); MEAN PLATELET VOLUME 7.5 fL (7.4-10.4); NEUTROPHILS 83.1 % (40-80); PLATELET COUNT 138 10x3/uL (130-400); RBC 3.14 10x6/uL (4.20-6.10); RDW 16.1 % (11.5-14.5); WBC 5.9 10x3/uL (4.8-10.8)
[2019-03-12 11:38] LABS: APTT 35.8 SECONDS (22.8-39.4); INR 1.14 (0.85-1.17); PROTIME 14.1 SECONDS (11.6-15.0)
[2019-03-12 11:44] LABS: ALBUMIN 2.8 g/dL (3.4-5.0); BILIRUBIN - TOTAL 0.48 mg/dL (0.2-1.3); CALCIUM 8.3 mg/dL (8.5-10.1); CARBON DIOXIDE 29.7 mmol/L (21.0-32.0); CREATININE - SERUM 10.4 mg/dL (0.6-1.3); POTASSIUM - SERUM 5.7 mmol/L (3.5-5.1); PROTEIN - SERUM 6.7 g/dL (6.4-8.2)
[2019-03-12] MEDS ORDERED: CATAPRES TTS-20.2 MG TD (13:43)
[2019-03-12 13:44] VITALS: Ht 167.6 cm; Wt 86.4 kg
--- NOTE | 2019-03-12 16:30 | NUR ---
1605-[facility] TRAY TO ROOM.VSS.DENIES PAIN.SITE WITHOUT BLEEDING OR HEMATOMA.AWAKE AND ALERT.
--- NOTE | 2019-03-12 16:30 | NUR ---
1544-REC'D FROM SPECIALS. AWAKE AND ALERT,DENIES PAIN. VSS.SITE CDI
--- NOTE | 2019-03-12 16:31 | NUR ---
1630-TOLERATED TRAY WITOUT COMPLAINTS.VSS. SPOUSE AT BEDSIDE, CL IN EASY REACH. SITE WITHOUT BLEEDING OR HEMATOMA
--- NOTE | 2019-03-12 16:42 | NUR ---
9940-CONTACTED FREEMAN AT [facility] REGARDING BLOOD PRESSURE OF 204/94-PT HAS NOT TAKEN NOON B/P MEDS, DOES NOT HAVE WITH HIM. NO FURTHER ORDERS. PT AWARE AND WILL TAKE HIS MEDICATIONS UPON DISCHARGE AND HOME
--- NOTE | 2019-03-12 17:40 | NUR ---
1739-DISCHARGE CRITERIA MET. REMOVED IV WITH CATH INTACT,DISPOSED INTO SHARPS,COVERED SITE WITH BANDAID. DENIES PAIN.VSS. SITE CDI WITHOUT HEMATOMA. REVIEWED DISCHARGE INSTRUCTIONS,VERBALIZED UNDERSTANDING. ESCORTED OUT VIA W/C WITH DAUGHTER AWAITING TO DRIVE HOME.
== END 2019-03-12 17:40 | disposition home or self-care (01) ==
LOC: D.CT 11:14
PROVIDERS: General Practice; ATTEND Internal Medicine Nephrology
DX: R18.8 Other ascites (principal)

== ENCOUNTER 2019-04-10 07:22 | Observation (INO) | payer MEDICARE ==
[2019-04-10] VITALS (11 sets, daily range): BP systolic 164–209; BP diastolic 57–102; Ht 167.6 cm; Wt 80.0 kg
[~2019-04-10] VITALS: Ht 167.6 cm; Wt 80.0 kg
[~2019-04-10 07:22] MED LIST changes: +CATAPRES TTS-20.2 MG TD
[2019-04-10 08:23] LABS: ANION GAP 17.4 mmol/L (8-16); CALCIUM 8.2 mg/dL (8.5-10.1); CARBON DIOXIDE 28.2 mmol/L (21.0-32.0); CREATININE - SERUM 10.1 mg/dL (0.6-1.3); POTASSIUM - SERUM 5.6 mmol/L (3.5-5.1)
[2019-04-10 09:12] LABS: BASOPHILS 0.1 % (0-2); EOSINOPHILS 1.5 % (0-7); IMMATURE GRANULOCYTES 0.1 % (0-5); LYMPHOCYTES 4.9 % (15-50); MCH 27.5 pg (26.0-34.0); MCHC 31.1 g/dL (31.0-37.0); MCV 88.4 fL (80.0-100.0); MEAN PLATELET VOLUME 8.4 fL (7.4-10.4); MONOCYTES 4.6 % (2-11); NEUTROPHILS 88.8 % (40-80); PLATELET COUNT 128 10x3/uL (130-400); RDW 15.8 % (11.5-14.5); WBC 7.4 10x3/uL (4.8-10.8)
[2019-04-10 09:13] LABS: HEMATOCRIT 16.7 % (42.0-54.0); HEMOGLOBIN 5.2 g/dL (13.5-17.5); RBC 1.89 10x6/uL (4.20-6.10)
[2019-04-10 09:14] LABS: APPEARANCE CLEAR (CLEAR); COLOR YELLOW (YELLOW); GLUCOSE 500 mg/dL (NEGATIVE); NITRITE NEGATIVE (NEGATIVE); PROTEIN 3+ mg/dL (NEGATIVE)
[2019-04-10 09:15] LABS: BILIRUBIN NEGATIVE (NEGATIVE); KETONE NEGATIVE (NEGATIVE); UDS - AMPHET NEGATIVE QUAL (NEGATIVE); UDS - BARB NEGATIVE QUAL (NEGATIVE); UDS - BENZO NEGATIVE QUAL (NEGATIVE); UDS - COCAINE NEGATIVE QUAL (NEGATIVE); UDS - OPIATE POSITIVE QUAL (NEGATIVE); UDS - PCP NEGATIVE QUAL (NEGATIVE); UDS - THC NEGATIVE QUAL (NEGATIVE); UROBILINOGEN NORMAL (NORMAL)
[2019-04-10 09:16] LABS: BACTERIA FEW /hpf (NEGATIVE); EPITHELIAL CELLS OCC /hpf (0-5); RED CELLS - URINE 0-5 /hpf (0-5); WHITE CELLS - URINE 0-5 /hpf (NEGATIVE)
[2019-04-10 09:22] LABS: ALBUMIN 2.6 g/dL (3.4-5.0); BILIRUBIN - TOTAL 0.4 mg/dL (0.2-1.3); PROTEIN - SERUM 6.3 g/dL (6.4-8.2)
[2019-04-10 09:24] LABS: TROPONIN-I 0.074 ng/mL (0.000-0.060)
[2019-04-10 09:50] LABS: APTT 43.5 SECONDS (22.8-39.4); INR 1.25 (0.85-1.17); PROTIME 15.2 SECONDS (11.6-15.0)
--- NOTE | 2019-04-10 10:05 | NUR ---
ATTEMPTED REPORT, RECIEVING NURSE UNAVAILABLE, WILL RETURN CALL
--- NOTE | 2019-04-10 10:43 | NUR ---
ATTEMPTED REPORT, PLACED ON HOLD,
--- NOTE | 2019-04-10 11:32 | MORECARE ---
CASE MANAGEMENT DISCHARGE SUMMARY PATIENT: KRISTY SOUSA JR UNIT: [id number] ADM DATE: 04/10/19 AGE: 48 : 71 SEX: M ROOM/BED: D.2106 AUTHOR: HANS SCHAFFER PHYSICIAN: REFERRING PHYSICIAN: KRISTY JACINTO MD DATE OF SERVICE: 04/10/19 Discharge Plan Patient Name: KRISTY SOUSA Facility: [facility]:[place] : 1970 Planned Disposition: Home Anticipated Discharge Date: 04/13/19 Discharge Date: Expected LOS: 3 Initial Reviewer: [email or web address] Initial Review Date: 04/10/2019 Generated: 04/10/19 12:32 pm Patient Name: KRISTY SOUSA Page [id number] at 1132 All edits/amendments must be made on the electronic document DICTATION DATE: 04/10/19 113 RADIO DIVISION LIEUTENANT: LAIHSA 04/10/19 1132 RPT#: [id number] DC DATE: STATUS: ADM IN [facility] [address] [place] [address] END OF REPORT
--- NOTE | 2019-04-10 11:43 | MORECARE ---
CASE MANAGEMENT DISCHARGE SUMMARY PATIENT: KRISTY SOUSA JR UNIT: [id number] ADM DATE: 04/10/19 AGE: 48 : 71 SEX: M ROOM/BED: D.2106 AUTHOR: SARBJIT,HANS PHYSICIAN: REFERRING PHYSICIAN: KRISTY JACINTO MD DATE OF SERVICE: 04/10/19 Discharge Plan Patient Name: KRISTY SOUSA Facility: [facility]:[place] : 1970 Planned Disposition: Home Anticipated Discharge Date: 04/13/19 Discharge Date: Expected LOS: 3 Initial Reviewer: [email or web address] Initial Review Date: 04/10/2019 Generated: 04/10/19 12:42 pm DCP- Discharge Planning Updated by [email or web address]: Stefanie Newell on 04/10/19 10:[address] DC PLAN: Return home w/ . Continue Home HD as scheduled. ANTICIPATED DC NEEDS: Denied known dc needs at time of assessment. CM met with patient and his , Luma to complete initial dc planning assessment. CM educated patient and his on the CM role and verbal consent given by patient's to complete assessment. Patient appears to be sleeping and did not answer questions. Patient answered all assessment questions. CM verified patient's address, phone number, and emergency contact phone numbers. Patient lives at home with his . At discharge patient plans to return home and feels this is a safe discharge. Patient does home dialysis 3-4 times per week. Luma reports she assists him with his hemodialysis. CM discussed availability of home health, rehab services, and medical equipment. Luma denied known discharge needs at this time. Transportation provider at discharge will be Luma . CM will continue to follow and will assist as needed with dc plans/needs. Stefanie Newell RN, [facility] DCPIA - Discharge Planning Initial Assessment Updated by [email or web address]: Stefanie Newell on 04/10/19 11:32 am * Is the patient Alert and Oriented? Yes * How many steps to enter\exit or inside your home? None * PCP Dr. Isreal Patricia * Pharmacy [facility] in [facility] * Preadmission Environment Home with Family * ADLs Independent * Other Equipment Home HD equipment BP cuff * List name and contact numbers for known caregivers / representatives who currently or will assist patient after discharge: Luma Sousa - [phone] Moriah Sousa - [phone] * Verbal permission to speak to the caregivers and representatives has been obtained from the patient. Yes * Community resources currently utilized None * Additional services required to return to the preadmission environment? No * Can the patient safely return to the preadmission environment? Yes * Has this patient been hospitalized within the prior 30 days at any hospital? No Last DP export: 04/10/19 10:32 Patient Name: KRISTY SOUSA Page [phone] at 1143 All edits/amendments must be made on the electronic document DICTATION DATE: 04/10/19 114 MARINE RADIO INSTALLER AND SERVICER: LAISHA 04/10/19 114 RPT#: [id number] DC DATE: STATUS: ADM IN [facility] [address] [place] [address] END OF REPORT
--- NOTE | 2019-04-10 15:30 | NUR ---
PT RETURNED TO ROOM VIA BED FOLLOWING PARACENTESIS. 2ND UNIT BLOOD HUNG THERE AND INFUSING WELL. NO SEDATION GIVEN FOR PROCEDURE AND PT IS A/A/OX4. V/S STABLE.
--- NOTE | 2019-04-10 18:32 | NUR ---
I ASSESSED THIS PATIENT TODAY ON ADMISSION NOTE
--- NOTE | 2019-04-10 19:17 | NUR ---
RECEIVED REPORT, WILL ASSUME CARE OF PT, PT IS IN DIALYSIS NOW
--- NOTE | 2019-04-10 22:57 | NUR ---
RECEIVED BACK FROM DIALYSIS, DENIES ANY NEEDS AT THIS TIME, BED IS LOW, SRX2, CALL LIGHT IN REACH, WILL CONTINUE PLAN OF CARE
[2019-04-11] VITALS: BP 108/66; BP 233/103
--- NOTE | 2019-04-11 00:17 | NUR ---
MAX RN GAVE APRESOLINE FOR BP 233/103
--- NOTE | 2019-04-11 03:19 | NUR ---
I have reviewed this patient and I concur with the Shift Assessment completed by the Licensed Practical Nurse today this shift.
[2019-04-11 04:00] VITALS: BP 266/98
--- NOTE | 2019-04-11 04:02 | NUR ---
RACHEL HUERTA GAVE APRESOLINE FOR BP 226/98
--- NOTE | 2019-04-11 07:43 | NUR ---
PT RESTING PEACEFULLY, DID NOT WAKE I ENTERED. BREATHS EVEN/REGULAR/UNLABORED. NO SIGNS/SYMTPOMS OF ACUTE DISTRESS NOTED AT THIS TIME. CL IN REACH, SRX2. NO FAMILY PRESENT AT BEDSIDE.
[2019-04-11 09:20] VITALS: BP 208/86
[2019-04-11 10:32] LABS: LYMPHOCYTES 5.3 % (15-50); MCHC 33.3 g/dL (31.0-37.0); MCV 87.1 fL (80.0-100.0); MEAN PLATELET VOLUME 7.9 fL (7.4-10.4); NEUTROPHILS 87.4 % (40-80); PLATELET COUNT 135 10x3/uL (130-400); RDW 15.1 % (11.5-14.5); WBC 7.5 10x3/uL (4.8-10.8)
[2019-04-11 10:34] LABS: HEMATOCRIT 24.3 % (42.0-54.0); HEMOGLOBIN 8.1 g/dL (13.5-17.5); RBC 2.79 10x6/uL (4.20-6.10)
[2019-04-11 10:41] LABS: ANION GAP 12.5 mmol/L (8-16); CALCIUM 8.4 mg/dL (8.5-10.1); CARBON DIOXIDE 30.8 mmol/L (21.0-32.0); CREATININE - SERUM 7.7 mg/dL (0.6-1.3); POTASSIUM - SERUM 5.3 mmol/L (3.5-5.1)
--- NOTE | 2019-04-11 13:35 | NUR ---
PT AMBULATED OUT BY SELF. OFFERED WHEELCAHIR DENIED. WITH TO POV.
--- NOTE | 2019-04-11 14:01 | MORECARE ---
CASE MANAGEMENT DISCHARGE SUMMARY PATIENT: KRISTY SOUSA JR UNIT: [id number] ADM DATE: 04/10/19 AGE: 48 : 71 SEX: M ROOM/BED: D.2106 AUTHOR: HANS SCHAFFER PHYSICIAN: REFERRING PHYSICIAN: KRISTY JACINTO MD DATE OF SERVICE: 04/11/19 Discharge Plan Patient Name: KRISTY SOUSA Facility: [facility]:[place] : 1970 Planned Disposition: Home Anticipated Discharge Date: 04/13/19 Discharge Date: 04/11/2019 Expected LOS: 3 Initial Reviewer: [email or web address] Initial Review Date: 04/10/2019 Generated: 04/11/19 3:01 pm Comments DCP- Discharge Planning Updated by [email or web address]: Stefanie Newell on 04/11/19 12:[address] DC PLAN: Home with and Home HD 3-4 x week. Denied dc needs. Stefanie Newell RN, CCM DCP- Discharge Planning Updated by [email or web address]: Stefanie Newell on 04/10/19 10:[address] DC PLAN: Return home w/ . Continue Home HD as scheduled. ANTICIPATED DC NEEDS: Denied known dc needs at time of assessment. CM met with patient and his , Luma to complete initial dc planning assessment. CM educated patient and his on the CM role and verbal consent given by patient's to complete assessment. Patient appears to be sleeping and did not answer questions. Patient answered all assessment questions. CM verified patient's address, phone number, and emergency contact phone numbers. Patient lives at home with his . At discharge patient plans to return home and feels this is a safe discharge. Patient does home dialysis 3-4 times per week. Luma reports she assists him with his hemodialysis. CM discussed availability of home health, rehab services, and medical equipment. Luma denied known discharge needs at this time. Transportation provider at discharge will be Luma . CM will continue to follow and will assist as needed with dc plans/needs. Stefanie Newell RN, CCM DCPIA - Discharge Planning Initial Assessment Updated by [email or web address]: Stefanie Newell on 04/10/19 11:32 am * Is the patient Alert and Oriented? Yes * How many steps to enter\exit or inside your home? None * PCP Dr. Isreal Patricia * Pharm[facility] * Preadmission Environment Home with Family * ADLs Independent * Other Equipment Home HD equipment BP cuff * List name and contact numbers for known caregivers / representatives who currently or will assist patient after discharge: Luma Sousa - [phone] Moriah Sousa [phone] * Verbal permission to speak to the caregivers and representatives has been obtained from the patient. Yes * Community resources currently utilized None * Additional services required to return to the preadmission environment? No * Can the patient safely return to the preadmission environment? Yes * Has this patient been hospitalized within the prior 30 days at any hospital? No Last DP export: 04/10/19 10:43 Patient Name: KRISTY SOUSA Page [phone] at 1401 All edits/amendments must be made on the electronic document DICTATION DATE: 04/11/191400 OVER THE HORIZON TARGETING SUPERVISOR: LAISHA 04/11/191400 RPT#: [id number] DC DATE:04/11/19 STATUS: DIS IN [facility] [address] [place] [address] END OF REPORT
== END 2019-04-11 13:35 | disposition home or self-care (01) ==
LOC: D.ER 07:22 → OBSVTIME 09:19 → D.M2 09:19 → D.ER 09:19 → D.M2 04-11 13:35
PROVIDERS: Family Medicine; Internal Medicine Nephrology; Specialist; ADMIT Internal Medicine Nephrology; ATTEND Internal Medicine Nephrology
PROC: 5A1D70Z Performance of Urinary Filtration, Intermittent, Less than 6 Hours Per Day (ICD-10-PCS; 2019-04-10)
PROC: 0W9G3ZZ Drainage of Peritoneal Cavity, Percutaneous Approach (ICD-10-PCS; principal; 2019-04-10 13:55)
DX: E87.70 Fluid overload, unspecified (principal); N18.6 End stage renal disease; R18.8 Other ascites; I12.0 Hypertensive chronic kidney disease with stage 5 chronic kidney disease or end stage renal disease; D68.9 Coagulation defect, unspecified; E10.22 Type 1 diabetes mellitus with diabetic chronic kidney disease; Z99.2 Dependence on renal dialysis; D63.1 Anemia in chronic kidney disease; E87.5 Hyperkalemia

== ENCOUNTER 2019-04-22 00:45 | Inpatient (IN) | payer MEDICARE ==
[~2019-04-22] VITALS: Ht 167.6 cm; Wt 75.6 kg
[2019-04-22] VITALS (8 sets, daily range): BP systolic 131–210; BP diastolic 59–103; Ht 167.6 cm; Wt 75.6 kg
[2019-04-22] MEDS ORDERED: AMOXICILLIN875 MG PO (00:52)
[2019-04-22 01:38] LABS: BASOPHILS 0.1 % (0-2); EOSINOPHILS 2.4 % (0-7); HEMATOCRIT 20.5 % (42.0-54.0); IMMATURE GRANULOCYTES 0.3 % (0-5); LYMPHOCYTES 5.8 % (15-50); MCH 28.5 pg (26.0-34.0); MCHC 30.7 g/dL (31.0-37.0); MCV 92.8 fL (80.0-100.0); MEAN PLATELET VOLUME 8.2 fL (7.4-10.4); MONOCYTES 5.2 % (2-11); NEUTROPHILS 86.2 % (40-80); PLATELET COUNT 118 10x3/uL (130-400); RBC 2.21 10x6/uL (4.20-6.10); WBC 6.7 10x3/uL (4.8-10.8)
[2019-04-22 01:43] LABS: CALC OSMOLALITY 301 mosm/kg (275-300); CARBON DIOXIDE 27.2 mmol/L (21.0-32.0); CHLORIDE - SERUM 101 mmol/L (98-107); GLUCOSE 111 mg/dL (74-106); SODIUM 140 mmol/L (136-145); UREA NITROGEN 74 mg/dL (7-18); eGFR NON AFRICAN AMERICAN 6 mL/min (90-120)
[2019-04-22 01:45] LABS: INR 1.27 (0.85-1.17); PROTIME 15.3 SECONDS (11.6-15.0)
--- NOTE | 2019-04-22 01:45 | NUR ---
PT RESTING IN POSITION OF COMFORT. PT PROVIDED WITH BLANKETS. NO FURTHER NEEDS AT THIS TIME.
[2019-04-22 01:46] LABS: APTT 35.2 SECONDS (22.8-39.4)
[2019-04-22 01:52] LABS: HEMOGLOBIN 6.3 g/dL (13.5-17.5)
[2019-04-22 02:04] LABS: ALBUMIN 2.6 g/dL (3.4-5.0); ALKALINE PHOSPHATASE 99 U/L (46-116); ALT (SGPT) 18 U/L (10-68); BILIRUBIN - TOTAL 0.58 mg/dL (0.2-1.3); CKMB 3.2 U/L (0.0-3.6); CREATINE KINASE 277 UL (21-232); PROTEIN - SERUM 6.9 g/dL (6.4-8.2)
[2019-04-22 02:12] LABS: D-DIMER-QUANTITATIVE 9.16 ug/mLFEU (0.20-0.54); TROPONIN-I 0.068 ng/mL (0.000-0.060)
[2019-04-22 02:25] LABS: PRO BNP 91496 pg/mL (0-125)
--- NOTE | 2019-04-22 03:02 | NUR ---
BLOOD CONSENT SIGNED. SEE PAPER TRANSFUSION FORM.
--- NOTE | 2019-04-22 04:34 | NUR ---
PT PT ON HIGH PRIORITY TO RECIEVE TELE NONE AVAILABLE AT THIS TIME
--- NOTE | 2019-04-22 04:35 | NUR ---
ARIVES VIA STRETCHER BUT STANDS FOR WIEGHT BEFORE TRANSFERING TO BED BED IS LOW AND LOCKED SRX2 AND CALL LIGHT GIVEN 1 UNIT OF BLOOD IS BEING GIVEN AT THIS TIME LCTA SKIN WARM AND DRY
--- NOTE | 2019-04-22 04:40 | NUR ---
BLOOD INFUSING ON TRANSFER.
--- NOTE | 2019-04-22 11:00 | NUR ---
PATIENT REFUSED SCDs AT THIS TIME.
--- NOTE | 2019-04-22 13:07 | NUR ---
PT IN DIALYSIS.
--- NOTE | 2019-04-22 13:57 | NUR ---
DIALYSIS CALLED FOR BLOOD TO BE BROUGHT DOWN. CLALED BLOOD BANK AND THEY STATED THE WOULD HAVE IT READY IN 5-10MIN. I VERBALIZED UNDERSTANDING AND CALLED DIALYSIS AND STATED THIS TO THEM AND THEY VEBRALIZED UNDERSTANDING.
--- NOTE | 2019-04-22 16:50 | NUR ---
PT RETURNED FROM DIALYSIS VIA BED.
--- NOTE | 2019-04-22 17:11 | NUR ---
PT WANTING SOMETHING FOR COUGH. SPOKE WTMIGUELITO MUÑIZ APN AND SHE ORDERED TESSALON PERLE 200MG TIDPRN. I VERBALIZED UNDERSTANDING.
--- NOTE | 2019-04-22 17:15 | NUR ---
CONSENTS FOR PARACENTESIS TOMORROW SIGNED.
--- NOTE | 2019-04-22 19:35 | NUR ---
LYING IN BED. ALERT AND ORIENTED X4. RESP IRREG, LABORED AT TIMES. O2 @ 2L/NC. NONPROD COUGH NOTED. ABD IS DISTENDED AND FIRM. INFORMED PT THAT HE IS NPO AFTER MIDNIGHT FOR PARACENTESIS TOMORROW. HE VERBALIZED UNDERSTANDING. REPORTS PAIN IN ABD 6 ON PAIN SCALE. RECEIVED PAIN MED PRIOR TO SHIFT CHANGE. SALINE LOCK NOTED TO RT FOREARM. LT ARM RESERVE WITH AV FISTULA. AMBULATORY. FATHER AT BEDSIDE. SR ELEVATED X2. CL IN REACH. NO ACUTE DISTRESS.
--- NOTE | 2019-04-22 22:25 | NUR ---
MEDICATED WITH TESSALON PERLE FOR C/O COUGH. REQUESTS SNACK AT THIS TIME.
--- NOTE | 2019-04-22 23:35 | NUR ---
MEDICATED WITH NORCO FOR C/O ABD PAIN. CL IN REACH.
[2019-04-23] VITALS: BP 189/83
--- NOTE | 2019-04-23 02:17 | NUR ---
RESTING QUIETLY WITH EYES CLOSED. RESP EVEN AND NONLABORED. NO DISTRESS. CL IN REACH.
[2019-04-23 04:00] VITALS: BP 189/89
--- NOTE | 2019-04-23 05:06 | NUR ---
IN SHOWER FOR HIBACLENS. LINENS CHANGED AT THIS TIME PER COAT JOINER LOCKSTITCH.
[2019-04-23 05:36] LABS: BASOPHILS 0 % (0-2); EOSINOPHILS 4.1 % (0-7); IMMATURE GRANULOCYTES 0.4 % (0-5); LYMPHOCYTES 7.2 % (15-50); MCHC 31.1 g/dL (31.0-37.0); MEAN PLATELET VOLUME 8.6 fL (7.4-10.4); MONOCYTES 8.1 % (2-11); NEUTROPHILS 80.2 % (40-80); PLATELET COUNT 125 10x3/uL (130-400); RDW 16.8 % (11.5-14.5); WBC 5.4 10x3/uL (4.8-10.8)
[2019-04-23 06:03] LABS: HEMATOCRIT 28.6 % (42.0-54.0); HEMOGLOBIN 8.9 g/dL (13.5-17.5); MCV 89.9 fL (80.0-100.0); RBC 3.18 10x6/uL (4.20-6.10)
[2019-04-23 06:04] LABS: ALBUMIN 2.3 g/dL (3.4-5.0); ANION GAP 12.1 mmol/L (8-16); BILIRUBIN - TOTAL 0.81 mg/dL (0.2-1.3); CALCIUM 8.2 mg/dL (8.5-10.1); CARBON DIOXIDE 32.3 mmol/L (21.0-32.0); CREATININE - SERUM 7.2 mg/dL (0.6-1.3); MAGNESIUM - SERUM 1.9 mg/dL (1.8-2.4); PHOSPHOROUS 6.6 mg/dL (2.5-4.9); POTASSIUM - SERUM 4.4 mmol/L (3.5-5.1); PROTEIN - SERUM 6.5 g/dL (6.4-8.2)
[2019-04-23 07:13] LABS: APTT 38.8 SECONDS (22.8-39.4)
[2019-04-23 07:14] LABS: INR 1.19 (0.85-1.17); PROTIME 14.6 SECONDS (11.6-15.0)
--- NOTE | 2019-04-23 07:44 | NUR ---
A/A/OX4. SITTING UP ON SIDE OF BED WITH NO VOICED COMPLAINTS. REMAINS NPO FOR PARACENTESIS THIS AM AND IS AWARE OF THIS. NO REQUESTS VOICED. SL TO RIGHT FOREARM C/D/I WITH NO REDNESS OR EDEMA AT SITE. UP AND ABOUT AD JANETTE WITH STEADY GAIT AND NO FALL RISKS IDENTIFIED. DENIES ANY PAINAT PRESETNT TIME. ASSESSMENT COMPLETED AND WILL CONTINUE POC.
[2019-04-23 07:57] LABS: % SATURATION 33 % (15-55); IRON 36 ug/dl (35-150); TOTAL IRON BIND CAPACITY 108 ug/dl (260-445); UNSAT IRON BIND CAPACITY 72 ug/dl (150-375)
[2019-04-23 08:25] LABS: THYROID STIMULATING HORMONE 2.7 uIU/mL (0.36-3.74)
[2019-04-23 08:29] VITALS: BP 179/74
--- NOTE | 2019-04-23 10:19 | NUR ---
TO IR VIA BED FOR PARACENTESIS.
--- NOTE | 2019-04-23 11:00 | NUR ---
RETURNED TO ROOM VIA BED FROM IR. NO DRESSINGS ON PARACENTESIS SITES X 2. AREAS CLOSED WITH NO BLEEDING. PT IS A/A/OX4 AND ASKING FOR SOMETHING TO EAT. SANDWICH PROVIDED AND TOLERATED WELL. V/S TAKEN AND NO PROBLEMS NOTED. PT IS WANTING TO BE DISCHARGE TODAY. CALLED ANTONINO AND STATES SHE WOULD CALL DR. JACINTO AND DISCUSS WITH HIM AND LET ME KNOW A LITTLE LATER.
--- NOTE | 2019-04-23 12:16 | NUR ---
I have reviewed this patient and I concur with the Shift Assessment completed by the Licensed Practical Nurse today this shift.
[2019-04-23 12:24] LABS: PROTEIN - BODY FLUID 3.8 G/DL
[2019-04-23 12:25] LABS: PROTEIN - BODY FLUID 3.9 G/DL
--- NOTE | 2019-04-23 12:41 | NUR ---
ANTONINO CALLED WITH ORDER TO DISCHARGE AND SCHEDULE OTPT APPT WITH DR. ALCALA. PT STATES HE ALREADY HAS APPT SCHEDULED WITH HIM.
[2019-04-23 13:17] LABS: NEUT - BF 36 %
[2019-04-23 13:18] LABS: EOS BF 5 %
[2019-04-23 13:21] LABS: MACROPHAGES BF 27 %; NEUT - BF 2 %
--- NOTE | 2019-04-23 14:31 | NUR ---
DISCHARGE INSTRUCTIONS REVIEWED WITH PT AND VERBALIZES UNDERSTANDING WITH NO QUESTIONS. SALINE LOCK REMOVED WITH CATH TIP INTACT. LEFT FLOOR VIA W/C WITH ALL PERSONAL BELONGINGS AND LEFT FACILITY VIA PRIVATE VEHICLE WITH HIS SON.
--- NOTE | 2019-04-23 16:41 | MORECARE ---
CASE MANAGEMENT DISCHARGE SUMMARY PATIENT: KRISTY SOUSA JR UNIT: [id number] ADM DATE: 04/22/19 AGE: 48 : 71 SEX: M ROOM/BED: D.2104 AUTHOR: SARBJIT,DOC PHYSICIAN: REFERRING PHYSICIAN: BALBIR POWERS DO DATE OF SERVICE: 04/23/19 Discharge Plan Patient Name: KRISTY SOUSA Facility: [facility]:[place] : 1970 Planned Disposition: Home Anticipated Discharge Date: 04/23/19 Discharge Date: 04/23/2019 Expected LOS: 1 Initial Reviewer: [email or web address] Initial Review Date: 04/23/2019 Generated: 04/23/19 5:41 pm Comments DCP- Discharge Planning Updated by [email or web address]: Hood Acharya on 04/23/19 3:[address] Patient Name: KRISTY SOUSA Admission Status: ER Accout number: [id number] Admission Date: 04-22-2019 : 1970 Admission Diagnosis: Attending: RICKY Current LOS: 1 Anticipated DC Date: 04-23-2019 Planned Disposition: Home Primary Insurance: [employer] CHOICE PPO MCR ADVANT Discharge Planning Comments: CM MET WITH PT IN ROOM TO DISCUSS DISCHARGE PLANNING AND NEEDS. PT REPORTS LIVING AT HOME INDEPENDENTLY WITH HIS . PT HAS HOME HEMODIALYSIS EQUIOPMENT WITH NO MEDICAL EQUIPMENT PROVIDER PREFERENCE. PT HAS NO OUTSIDE SERVICES ASSISTING IN THE HOME. CM DISCUSSED AVAILABILITY OF HOME HEALTH, REHAB SERVICES AND MEDICAL EQUIPMENT. PT DENIES DISCHARGE NEEDS, REPORTS HIS FATHER WILL PICK HIM UP FOR DISCHARGE HOME. Engine Cleaner: Hood Acharya DCPIA - Discharge Planning Initial Assessment Updated by [email or web address]: Hood Acharya on 04/23/19 4:35 pm * Is the patient Alert and Oriented? Yes * How many steps to enter\exit or inside your home? NONE * PCP DR. JUAN A ORTEGA IN [facility] * Pharmacy [facility] IN [facility] * Preadmission Environment Home with Family * ADLs Independent * Equipment Other * Other Equipment HOME HEMODILAYSIS EQUIPMENT * List name and contact numbers for known caregivers / representatives who currently or will assist patient after discharge: LAURI SOUSA, SPOUSE, * Verbal permission to speak to the caregivers and representatives has been obtained from the patient. Yes * Community resources currently utilized None * Please name any agencies selected above. NONE * Additional services required to return to the preadmission environment? No * Can the patient safely return to the preadmission environment? Yes * Has this patient been hospitalized within the prior 30 days at any hospital? Yes Patient Name: KRISTY SOUSA Page 39908 at 1641 All edits/amendments must be made on the electronic document DICTATION DATE: 04/23/19 1640 MEDICAL TRANSCRIPTIONIST: LAISHA 04/23/19 1640 RPT#: [id number] DC DATE:04/23/19 STATUS: DIS IN [facility] [address] [place] [address] END OF REPORT
== END 2019-04-23 15:13 | disposition home or self-care (01) | DRG 682 ==
LOC: D.ER 00:45 → D.M2 02:56
PROVIDERS: Family Medicine; Internal Medicine Nephrology; Specialist; ADMIT Internal Medicine; ATTEND Internal Medicine
PROC: 5A1D70Z Performance of Urinary Filtration, Intermittent, Less than 6 Hours Per Day (ICD-10-PCS; 2019-04-22)
PROC: 0W9G3ZZ Drainage of Peritoneal Cavity, Percutaneous Approach (ICD-10-PCS; principal; 2019-04-23 10:20)
DX: I12.0 Hypertensive chronic kidney disease with stage 5 chronic kidney disease or end stage renal disease (principal); N18.6 End stage renal disease; R18.8 Other ascites; Z99.2 Dependence on renal dialysis; D63.1 Anemia in chronic kidney disease; K72.90 Hepatic failure, unspecified without coma; E83.39 Other disorders of phosphorus metabolism; Z86.73 Personal history of transient ischemic attack (TIA), and cerebral infarction without residual deficits

== ENCOUNTER 2019-05-12 08:00 | Outpatient (CLI) | payer MEDICARE ==
[~2019-05-12] VITALS: Ht 167.6 cm; Wt 75.0 kg
[~2019-05-12 08:00] MED LIST changes: +AMOXICILLIN875 MG PO
[2019-05-12 08:23] LABS: BASOPHILS 0.1 % (0-2); EOSINOPHILS 3.3 % (0-7); HEMATOCRIT 25.8 % (42.0-54.0); HEMOGLOBIN 8.1 g/dL (13.5-17.5); IMMATURE GRANULOCYTES 0.4 % (0-5); LYMPHOCYTES 7.1 % (15-50); MCH 29.1 pg (26.0-34.0); MCHC 31.4 g/dL (31.0-37.0); MCV 92.8 fL (80.0-100.0); MEAN PLATELET VOLUME 8.6 fL (7.4-10.4); MONOCYTES 4.5 % (2-11); NEUTROPHILS 84.6 % (40-80); PLATELET COUNT 116 10x3/uL (130-400); RBC 2.78 10x6/uL (4.20-6.10); WBC 6.7 10x3/uL (4.8-10.8)
[2019-05-12 08:38] LABS: INR 1.23 (0.85-1.17); PROTIME 14.9 SECONDS (11.6-15.0)
[2019-05-12 08:58] LABS: ALBUMIN 2.7 g/dL (3.4-5.0); ANION GAP 17.5 mmol/L (8-16); BILIRUBIN - TOTAL 0.65 mg/dL (0.2-1.3); CARBON DIOXIDE 26.4 mmol/L (21.0-32.0); CREATININE - SERUM 9.6 mg/dL (0.6-1.3); POTASSIUM - SERUM 5.9 mmol/L (3.5-5.1); PROTEIN - SERUM 6.6 g/dL (6.4-8.2)
[2019-05-12 09:13] VITALS: BP 165/86; Ht 167.6 cm; Wt 75.0 kg
--- NOTE | 2019-05-12 10:27 | NUR ---
ANTONINO ALVAREZ CALLED AT THIS TIME REGARDING K OF 5.9. SHE STATES TO CONTINUE WITH PROCEDURE PLANNEND AND ENSURE TELEMETRY IS APPLIED TO PT. WILL CONTINUE TO MONITOR.
--- NOTE | 2019-05-12 12:39 | NUR ---
1240 IV REMOVED AND PRESSURE HELD
--- NOTE | 2019-05-12 13:15 | NUR ---
1135 FREQ VS DONE. DRESSING TO RIGHT SIDE OF ABD CDI 1145 RECIEVED A FULL LIQ TRAY 1235 IV REMOVED AND PRESSURE HELD. INSTRUCTIONS GIVEN 1245 PT DISCHARGED HOME
== END 2019-05-12 12:45 | disposition home or self-care (01) ==
LOC: D.SP 08:00 → D.CT 10:30 → D.SP 12:45
PROVIDERS: Radiology Diagnostic Radiology; ATTEND Internal Medicine Nephrology
DX: R18.8 Other ascites (principal); R14.0 Abdominal distension (gaseous); N18.6 End stage renal disease; I10 Essential (primary) hypertension; Z68.25 Body mass index [BMI] 25.0-25.9, adult

== ENCOUNTER 2019-05-26 08:49 | Inpatient (IN) | payer MEDICARE ==
[~2019-05-26] VITALS: Ht 167.6 cm; Wt 79.1 kg
[2019-05-26 09:22] LABS: BASOPHILS 0.1 % (0-2); EOSINOPHILS 3.5 % (0-7); IMMATURE GRANULOCYTES 0.3 % (0-5); LYMPHOCYTES 6.2 % (15-50); MCH 29.3 pg (26.0-34.0); MCHC 31.8 g/dL (31.0-37.0); MCV 92.3 fL (80.0-100.0); MEAN PLATELET VOLUME 8.5 fL (7.4-10.4); MONOCYTES 5.1 % (2-11); NEUTROPHILS 84.8 % (40-80); PLATELET COUNT 111 10x3/uL (130-400); RBC 2.08 10x6/uL (4.20-6.10); RDW 15.9 % (11.5-14.5); WBC 6.9 10x3/uL (4.8-10.8)
[2019-05-26 09:28] LABS: HEMATOCRIT 19.2 % (42.0-54.0); HEMOGLOBIN 6.1 g/dL (13.5-17.5)
[2019-05-26 09:36] LABS: APTT 33.2 SECONDS (22.8-39.4); INR 1.23 (0.85-1.17)
[2019-05-26 09:45] LABS: ALBUMIN 2.9 g/dL (3.4-5.0); ANION GAP 19.8 mmol/L (8-16); BILIRUBIN - TOTAL 0.39 mg/dL (0.2-1.3); CALCIUM 7.9 mg/dL (8.5-10.1); CARBON DIOXIDE 21.9 mmol/L (21.0-32.0); CREATININE - SERUM 11.7 mg/dL (0.6-1.3); PROTEIN - SERUM 6.7 g/dL (6.4-8.2)
[2019-05-26 09:52] LABS: POTASSIUM - SERUM 6.7 mmol/L (3.5-5.1)
[2019-05-26] MEDS ORDERED: HYDROCODON-ACE1 EA10 PO (11:17)
--- NOTE | 2019-05-26 13:53 | NUR ---
0930-critical labs called to Shannen Harden, rn for dr glass. orders recd. 0945-telephone orders recd from renal seismology teacher field operations coordinator. 1130-to dialysis via wheelchair, report given to ihsan. 1150-report called to [facility] nurse Collazo. pt will be admitted to 2137 post dialysis. advised nurse to call lab to draw h and h after blood transfusion is complete. dialysis will give blood. 1200-IR nurse informed of pt orders/status and being admitted to room 2137.
--- NOTE | 2019-05-26 15:57 | NUR ---
PATIENT IS IN DIALYSIS.
[2019-05-26 16:00] VITALS: BP 215/92
--- NOTE | 2019-05-26 17:39 | NUR ---
PATIENT IS BACK UP HERE FROM DIALYSIS. HE IS GOING TO BE NPO AFTER MIDNIGHT FOR THORACENTISIS IN THE MORNING. HE IS TAKING HIS KEXOLATE AND WILL. DAUGHTER AT BEDSIDE. CONSENTS ARE SIGNED AND IN THE CHART.
[2019-05-26 17:57] VITALS: BP 213/92; Ht 167.6 cm; Wt 79.1 kg
[2019-05-26 18:20] LABS: HEMATOCRIT 24.8 % (42.0-54.0); HEMOGLOBIN 8.1 g/dL (13.5-17.5)
[2019-05-26 22:12] VITALS: BP 199/87
[2019-05-27 00:15] VITALS: BP 197/80
--- NOTE | 2019-05-27 04:21 | NUR ---
I have reviewed this patient and I concur with the Shift Assessment completed by the Licensed Practical Nurse today this shift.
[2019-05-27 04:30] VITALS: BP 128/74
--- NOTE | 2019-05-27 07:30 | NUR ---
A/A/OX4. REMAINS NPO FOR PARACENTESIS TODAY AND VERBALIZES UNDERSTANING. DENIES ANY PAIN AND NO REQUESTS VOICED. ASSESSMENT COMPLETED AND WILL CONTINUE POC. SL PATENT TO RIGHT FOREARM AND CALL LIGHT IN REACH.
--- NOTE | 2019-05-27 09:45 | NUR ---
RETURNED TO ROOM VIA BED FROM IR. PARACENTESIS COMPLETED AND PT IS A/A/OX4. DENIES ANY PAIN OR DISCOMFORT AT PRESENT TIME. NO DRESSING TO SITE AND NO DRAINAGE NOTED. IV PATENT TO RIGHT FOREARM AND INFUSING WITHOUT DIFFICULTY. B/P ELEVATED AT 177 SYSTOLIC AND PT GIVEN MORNING B/P MEDS. BREAKFAST SERVED AND TOLERATED WELL. PT STATES HE IS READY TO GO HOME.
--- NOTE | 2019-05-27 09:48 | MORECARE ---
CASE MANAGEMENT DISCHARGE SUMMARY PATIENT: KRISTY SOUSA JR UNIT: [id number] ADM DATE: 05/26/19 AGE: 48 : 71 SEX: M ROOM/BED: D.2137 AUTHOR: HANS SCHAFFER PHYSICIAN: REFERRING PHYSICIAN: KRISTY JACINTO MD DATE OF SERVICE: 05/27/19 Discharge Plan Patient Name: KRISTY SOUSA [facility] [facility] 1970 Planned Disposition: Home Anticipated Discharge Date: Discharge Date: Expected LOS: Initial Reviewer: [email or web address] Initial Review Date: 05/27/2019 Generated: 05/27/19 10:48 am Comments DCP- Discharge Planning Updated by [email or web address]: Hood Acharya on 05/27/19 8:[address] Patient Name: KRISTY SOUSA Admission Status: Elective Accout number: [id number] Admission Date: 05-26-2019 : 1970 Admission Diagnosis: Attending: KRISTY JACINTO Current LOS: 1 Anticipated DC Date: Planned Disposition: Home Primary Insurance: [employer] CHOICE PPO MCR ADVANT Discharge Planning Comments: CM ATTEMPTED TO MEET WITH PT FOR INITIAL ASSESSMENT OF DISCHARGE NEEDS. PT WAS NOT IN ROOM AT APPROXIMATELY 0915 HOURS. CM TO ATTEMPT ASSESSMENT OF PT AT A LATER TIME. Harness Builder: Hood Acharya Patient Name: KRISTY SOUSA Page [phone] at 0948 All edits/amendments must be made on the electronic document DICTATION DATE: 05/27/19947 EMAIL MARKETING MANAGER: LAISHA 05/27/19947 RPT#: [id number] DC DATE: STATUS: ADM IN [facility] [address] [place] [address] END OF REPORT
[2019-05-27 09:51] LABS: BASOPHILS 0.2 % (0-2); EOSINOPHILS 3.2 % (0-7); HEMATOCRIT 22.8 % (42.0-54.0); HEMOGLOBIN 7.6 g/dL (13.5-17.5); MCH 30.3 pg (26.0-34.0); MCHC 33.3 g/dL (31.0-37.0); MCV 90.8 fL (80.0-100.0); MEAN PLATELET VOLUME 9.1 fL (7.4-10.4); MONOCYTES 6.6 % (2-11); PLATELET COUNT 120 10x3/uL (130-400); RBC 2.51 10x6/uL (4.20-6.10); RDW 16.1 % (11.5-14.5); WBC 5.6 10x3/uL (4.8-10.8)
[2019-05-27 10:02] LABS: CALCIUM 7.8 mg/dL (8.5-10.1); CREATININE - SERUM 8.8 mg/dL (0.6-1.3)
[2019-05-27 10:04] LABS: ANION GAP 13.5 mmol/L (8-16); POTASSIUM - SERUM 4.5 mmol/L (3.5-5.1)
[2019-05-27 10:21] VITALS: BP 177/88
--- NOTE | 2019-05-27 11:30 | NUR ---
DISCHARGE INSTRUCTIONS REVIEWED WITH PT AND VERBALIZES UNDERSTANDIND WITH NO QUESTIONS. IV DC'D WITH CATH TIP INTACT. PARACENTESIS SITE WITHOUT ANY DRAINAGE OR BLEEDING. LEFT FLOOR VIA W/C WITH ALL PERSONAL BELONGINGS, LEFT FACILITY VIA PRIVATE CAR WITH DAUGHTER.
--- NOTE | 2019-05-27 11:41 | MORECARE ---
CASE MANAGEMENT DISCHARGE SUMMARY PATIENT: KRISTY SOUSA JR UNIT: [id number] ADM DATE: 05/26/19 AGE: 48 : 71 SEX: M ROOM/BED: D.2137 AUTHOR: HANS SCHAFFER PHYSICIAN: REFERRING PHYSICIAN: KRISTY JACINTO MD DATE OF SERVICE: 05/27/19 Discharge Plan Patient Name: KRISYT SOUSA Facility: [facility]:[place] : 1970 Planned Disposition: Home Anticipated Discharge Date: 05/27/19 Discharge Date: Expected LOS: 1 Initial Reviewer: [email or web address] Initial Review Date: 05/27/2019 Generated: 05/27/19 12:40 pm Comments DCP- Discharge Planning Updated by [email or web address]: Hood Acharya on 05/27/19 8:[address] Patient Name: KRISTY SOUSA Admission Status: Elective Accout number: [id number] Admission Date: 05-26-2019 : 1970 Admission Diagnosis: Attending: KRISTY JACINTO Current LOS: 1 Anticipated DC Date: Planned Disposition: Home Primary Insurance: [employer] CHOICE PPO MCR ADVANT Discharge Planning Comments: CM ATTEMPTED TO MEET WITH PT FOR INITIAL ASSESSMENT OF DISCHARGE NEEDS. PT WAS NOT IN ROOM AT APPROXIMATELY 0915 HOURS. CM TO ATTEMPT ASSESSMENT OF PT AT A LATER TIME. Fuel Cell Engineer: Hood Acharya Last DP export: 05/27/19 8:48 Patient Name: KRISTY SOUSA Page 10909 at 1141 All edits/amendments must be made on the electronic document DICTATION DATE: 05/27/19 1140 IT SOFTWARE ENGINEER: LAISHA 05/27/19 1140 RPT#: [id number] DC DATE: STATUS: ADM IN [facility] [address] [place] [address] END OF REPORT
--- NOTE | 2019-05-27 11:50 | MORECARE ---
CASE MANAGEMENT DISCHARGE SUMMARY PATIENT: KRISTY SOUSA JR UNIT: [id number] ADM DATE: 05/26/19 AGE: 48 : 71 SEX: M ROOM/BED: D.2137 AUTHOR: HANS SCHAFFER PHYSICIAN: REFERRING PHYSICIAN: KRISTY JACINTO MD DATE OF SERVICE: 05/27/19 Discharge Plan Patient Name: KRISTY SOUSA Facility: [facility]:[place] : 1970 Planned Disposition: Home Anticipated Discharge Date: 05/27/19 Discharge Date: Expected LOS: 1 Initial Reviewer: [email or web address] Initial Review Date: 05/27/2019 Generated: 05/27/19 12:49 pm Comments DCP- Discharge Planning Updated by [email or web address]: Hood Acharya on 05/27/19 10:[address] Patient Name: KRISTY SOUSA Admission Status: Elective Accout number: [id number] Admission Date: 05-26-2019 : 1970 Admission Diagnosis: Attending: KRISTY JACINTO Current LOS: 1 Anticipated DC Date: 05-27-2019 Planned Disposition: Home Primary Insurance: [employer] CHOICE PPO MCR ADVANT Discharge Planning Comments: DISCHARGE ORDER RECEIVED. CM MET WITH PT AND DAUGHTER IN ROOM TO DISCUSS DISCHARGE PLANNING AND NEEDS. KRISTY SOUSA provided verbal consent to discuss current and ongoing needs with/in the presence of: REESE SOUSA. PT REPORTS LIVING AT HOME INDEPENDENTLY WITH HIS . PT HAS HOME HEMODIALYSIS EQUIPMENT FOR HOME DIALYSIS. PT HAS NO MEDICAL EQUIPMENT PROVIDER PREFERENCE. PT HAS NO OUTSIDE SERVICES ASSISTING IN THE HOME. CM DISCUSSED AVAILABILITY OF HOME HEALTH, REHAB SERVICES AND MEDICAL EQUIPMENT. PT DENIES DISCHARGE NEEDS, REPORTS HIS DAUGHTER IS HERE TO PICK HIM UP FOR DISCHARGE HOME TODAY.FINANCIAL INVESTMENT MANAGER NURSE NOTIFIED. Appeals Referee: Hood Acharya DCP- Discharge Planning Updated by [email or web address]: Hood Acharya on 05/27/19 8:[address] Patient Name: KRISTY SOUSA Admission Status: Elective Accout number: [id number] Admission Date: 05-26-2019 : 1970 Admission Diagnosis: Attending: KRISTY JACINTO Current LOS: 1 Anticipated DC Date: Planned Disposition: Home Primary Insurance: [employer] CHOICE PPO MCR ADVANT Discharge Planning Comments: CM ATTEMPTED TO MEET WITH PT FOR INITIAL ASSESSMENT OF DISCHARGE NEEDS. PT WAS NOT IN ROOM AT APPROXIMATELY 0915 HOURS. CM TO ATTEMPT ASSESSMENT OF PT AT A LATER TIME. Appeals Referee: Hood Acharya DCPIA - Discharge Planning Initial Assessment Updated by [id number]: Hood Acharya on 05/27/19 11:40 am * Is the patient Alert and Oriented? Yes * How many steps to enter\exit or inside your home? NONE * PCP DR. JUAN A ORTEGA IN [facility] * Pharmacy [facility] IN [facility] * Preadmission Environment Home with Family * ADLs Independent * Equipment Other * Other Equipment HOME HEMODIALYSIS EQUIPMENT * List name and contact numbers for known caregivers / representatives who currently or will assist patient after discharge: LAURI SOUSA, SPOUSE, * Verbal permission to speak to the caregivers and representatives has been obtained from the patient. Yes * Community resources currently utilized Other * Please name any agencies selected above. HOME HEMODIALYSIS * Additional services required to return to the preadmission environment? No * Can the patient safely return to the preadmission environment? Yes * Has this patient been hospitalized within the prior 30 days at any hospital? No Last DP export: 05/27/19 10:41 Patient Name: KRISTY SOUSA Page 63123 at 1150 All edits/amendments must be made on the electronic document DICTATION DATE: 05/27/191148 TOPSTITCHER ZIGZAG: LAISHA 05/27/191148 RPT#: [id number] DC DATE: STATUS: ADM IN [facility] [address] [place] [address] END OF REPORT
[2019-05-28 11:10] LABS: SPE - A/G RATIO 1.2 (0.7-1.7); SPE - ALBUMIN 3.3 g/dL (2.9-4.4); SPE - ALPHA-1 GLOBULIN 0.2 g/dL (0.0-0.4); SPE - ALPHA-2 GLOBULIN 0.6 g/dL (0.4-1.0); SPE - BETA GLOBULIN 0.6 g/dL (0.7-1.3); SPE - GAMMA GLOBULIN 1.3 g/dL (0.4-1.8); SPE - M-SPIKE Not Observed g/dL (Not Observed); SPE - TOTAL PROTEIN 6.1 g/dL (6.0-8.5)
== END 2019-05-27 12:47 | disposition home or self-care (01) | DRG 682 ==
LOC: D.SP 08:49 → D.CT 11:00 → D.M2 11:27 → D.SP 13:50 → D.M2 05-27 12:47
PROVIDERS: Internal Medicine Nephrology; Radiology Vascular & Interventional Radiology; Specialist; ADMIT Internal Medicine Nephrology; ATTEND Internal Medicine Nephrology
PROC: 5A1D70Z Performance of Urinary Filtration, Intermittent, Less than 6 Hours Per Day (ICD-10-PCS; 2019-05-26)
PROC: 0W9G3ZZ Drainage of Peritoneal Cavity, Percutaneous Approach (ICD-10-PCS; principal; 2019-05-27 09:00)
DX: I12.0 Hypertensive chronic kidney disease with stage 5 chronic kidney disease or end stage renal disease (principal); N18.6 End stage renal disease; R18.8 Other ascites; E87.5 Hyperkalemia; E10.22 Type 1 diabetes mellitus with diabetic chronic kidney disease; Z99.2 Dependence on renal dialysis; D63.1 Anemia in chronic kidney disease; D69.6 Thrombocytopenia, unspecified; Z86.73 Personal history of transient ischemic attack (TIA), and cerebral infarction without residual deficits

== ENCOUNTER 2019-05-30 12:34 | Emergency (ER) | payer MEDICARE ==
[~2019-05-30] VITALS: Ht 167.6 cm; Wt 75.5 kg
[~2019-05-30 12:34] MED LIST changes: +HYDROCODON-ACE1 EA10 PO
[2019-05-30 12:51] VITALS: Ht 167.6 cm; Wt 75.5 kg
[2019-05-30 13:35] LABS: BASOPHILS 0.1 % (0-2); EOSINOPHILS 3.8 % (0-7); HEMATOCRIT 22.7 % (42.0-54.0); IMMATURE GRANULOCYTES 0.3 % (0-5); LYMPHOCYTES 6.1 % (15-50); MCH 29.8 pg (26.0-34.0); MCV 90.1 fL (80.0-100.0); MEAN PLATELET VOLUME 8.7 fL (7.4-10.4); NEUTROPHILS 85.7 % (40-80); PLATELET COUNT 113 10x3/uL (130-400); RBC 2.52 10x6/uL (4.20-6.10); RDW 15.4 % (11.5-14.5); WBC 7.3 10x3/uL (4.8-10.8)
[2019-05-30 13:40] LABS: HEMOGLOBIN 7.5 g/dL (13.5-17.5)
[2019-05-30 14:39] VITALS: BP 128/64
== END 2019-05-30 14:40 | disposition home or self-care (01) ==
LOC: D.ER 12:34
PROVIDERS: Family Medicine
DX: D64.9 Anemia, unspecified (principal); R04.0 Epistaxis; I12.9 Hypertensive chronic kidney disease with stage 1 through stage 4 chronic kidney disease, or unspecified chronic kidney disease; N18.9 Chronic kidney disease, unspecified; Z99.2 Dependence on renal dialysis; K21.9 Gastro-esophageal reflux disease without esophagitis; M54.9 Dorsalgia, unspecified; R60.9 Edema, unspecified

== ENCOUNTER → 2019-06-12 10:01 | Outpatient (CLI) | payer MEDICARE ==
[2019-05-30 12:51] VITALS: BMI 26.8
[2019-06-12 10:18] LABS: HEMATOCRIT 20.9 % (42.0-54.0)
[2019-06-12 10:30] LABS: HEMOGLOBIN 6.8 g/dL (13.5-17.5)
== END | disposition home or self-care (01) ==
LOC: D.LAB 09:55
PROVIDERS: ATTEND Internal Medicine Nephrology
DX: D63.1 Anemia in chronic kidney disease (principal)

== ENCOUNTER 2019-07-04 18:21 | Inpatient (IN) | payer MEDICARE ==
[~2019-07-04] VITALS: Ht 167.6 cm; Wt 82.3 kg
[2019-07-04 19:08] LABS: BASOPHILS 0.2 % (0-2); EOSINOPHILS 2.9 % (0-7); HEMATOCRIT 20.4 % (42.0-54.0); IMMATURE GRANULOCYTES 0.2 % (0-5); LYMPHOCYTES 6.3 % (15-50); MCH 29.7 pg (26.0-34.0); MCHC 33.3 g/dL (31.0-37.0); MCV 89.1 fL (80.0-100.0); MEAN PLATELET VOLUME 8.6 fL (7.4-10.4); MONOCYTES 4.3 % (2-11); NEUTROPHILS 86.1 % (40-80); PLATELET COUNT 92 10x3/uL (130-400); RBC 2.29 10x6/uL (4.20-6.10); RDW 14.8 % (11.5-14.5); WBC 6.5 10x3/uL (4.8-10.8)
[2019-07-04 19:14] LABS: HEMOGLOBIN 6.8 g/dL (13.5-17.5)
[2019-07-04 19:20] LABS: APTT 31.4 SECONDS (22.8-39.4); INR 1.18 (0.85-1.17); PROTIME 14.9 SECONDS (11.6-15.0)
[2019-07-04 19:23] LABS: CALC OSMOLALITY 298 mosm/kg (275-300); CALCIUM 8.3 mg/dL (8.5-10.1); CHLORIDE - SERUM 100 mmol/L (98-107); CREATININE - SERUM 10.5 mg/dL (0.6-1.3); GLUCOSE 98 mg/dL (74-106); POTASSIUM - SERUM 5.7 mmol/L (3.5-5.1); SODIUM 138 mmol/L (136-145); UREA NITROGEN 78 mg/dL (7-18); eGFR NON AFRICAN AMERICAN 6 mL/min (90-120)
--- NOTE | 2019-07-04 19:40 | NUR ---
PT GIVEN SANDWICH AND SPRITE AT THIS TIME. PT AT BEDSIDE INFORMED WE ARE JUST WAITING ON ROOM ASSIGNMENT
[2019-07-04 19:56] LABS: ALBUMIN 3.1 g/dL (3.4-5.0); ALKALINE PHOSPHATASE 78 U/L (46-116); ALT (SGPT) 18 U/L (10-68); BILIRUBIN - TOTAL 0.73 mg/dL (0.2-1.3); CKMB 5.7 U/L (0.0-3.6); CREATINE KINASE 517 UL (21-232); PROTEIN - SERUM 6.8 g/dL (6.4-8.2); TROPONIN-I 0.052 ng/mL (0.000-0.060)
--- NOTE | 2019-07-04 20:30 | NUR ---
PT ARRIVED TO FLOOR FROM ER. PRESENT AT BEDSIDE. NO NEEDS EXPRESSED. CALL LIGHT IN REACH. WILL CTM.
--- NOTE | 2019-07-04 22:15 | NUR ---
FIRST UNIT OF PRBCs STARTED TO PIV TO RIGHT AC. PT TOLERATING WELL. NO NEEDS EXPRESSED. CALL LIGHT IN REACH, WILL CTM.
[2019-07-04 23:13] VITALS: BP 167/69; BMI 29.2
--- NOTE | 2019-07-04 23:57 | NUR ---
PT RESTING QUIELTY, FIRST UNIT OF PRBCs STILL INFUSING. PT TOLERATING WELL. SPO2 85 WHILE PT WAS SLEEPING, NOW ON 2L NC, SPO2 97%. NO FURTHER NEEDS EXPRESSED. WILL CTM.
[2019-07-05] VITALS: BP 158/44
[2019-07-05] MEDS ORDERED: TUMS X-STR300 MG PO (00:41)
[2019-07-05] MEDS ORDERED: FERRIC CITRATE210 MG PO (00:43)
[2019-07-05] MEDS ORDERED: VENOFER100 MG/5 M IV (01:11)
[2019-07-05] MEDS ORDERED: EPOGEN20000 U/ML SC (01:11)
[2019-07-05 03:39] VITALS: BP 190/51
--- NOTE | 2019-07-05 04:19 | NUR ---
SECOND UNIT OF PRBC FINISHED INFUSING. PT TOLERATED WELL. WILL CTM.
[2019-07-05 06:17] LABS: ALBUMIN 2.9 g/dL (3.4-5.0); ANION GAP 16.9 mmol/L (8-16); BILIRUBIN - TOTAL 0.7 mg/dL (0.2-1.3); CARBON DIOXIDE 26.9 mmol/L (21.0-32.0); CREATININE - SERUM 11.3 mg/dL (0.6-1.3); MAGNESIUM - SERUM 2.2 mg/dL (1.8-2.4); POTASSIUM - SERUM 5.8 mmol/L (3.5-5.1); PROTEIN - SERUM 6.4 g/dL (6.4-8.2); THYROID STIMULATING HORMONE 2.86 uIU/mL (0.36-3.74)
[2019-07-05 06:26] LABS: PHOSPHOROUS 10.6 mg/dL (2.5-4.9)
[2019-07-05 10:07] VITALS: Ht 167.6 cm; Wt 82.3 kg
[2019-07-05 10:46] LABS: BASOPHILS 0.1 % (0-2); EOSINOPHILS 3.1 % (0-7); IMMATURE GRANULOCYTES 0.1 % (0-5); LYMPHOCYTES 4.3 % (15-50); MCHC 33.1 g/dL (31.0-37.0); MCV 87.7 fL (80.0-100.0); MEAN PLATELET VOLUME 8.6 fL (7.4-10.4); MONOCYTES 3.1 % (2-11); NEUTROPHILS 89.3 % (40-80); PLATELET COUNT 90 10x3/uL (130-400); RDW 15.8 % (11.5-14.5)
[2019-07-05 10:47] LABS: HEMATOCRIT 26.3 % (42.0-54.0); HEMOGLOBIN 8.7 g/dL (13.5-17.5); WBC 8.3 10x3/uL (4.8-10.8)
[2019-07-05 10:48] VITALS: BP 172/50
--- NOTE | 2019-07-05 10:55 | NUR ---
PATIENT BEING DISCHARGED TO HOME. PATIENT AWAITING DISCHARGE PAPERWORK AT THIS TIME. NO DISTRESS.
[2019-07-05 11:07] LABS: PLATELET ESTIMATE DECREASED
--- NOTE | 2019-07-05 11:15 | NUR ---
20 GAUGE IV REMOVED FROM RIGHT FOREARM. CATHETER TIP INTACT. NO BLEEDING FROM SITE. 2X2 GAUZE APPLIED AND SECURED WITH BANDAID. PATIENT TOLERATED IV REMOVAL WELL. DISCHARGE INSTRUCTIONS PROVIDED AT THIS TIME. PATIENT VERBALIZED UNDERSTANDING OF ALL INSTRUCTIONS PROVIDED. PATIENT LEFT UNIT WITH ALL PERSONAL BELONGINGS.
--- NOTE | 2019-07-05 11:22 | NUR ---
1120 PATIENT REFUSED WHEELCHAIR. PATIENT ASKED TO AMBULATE LEAVING THE UNIT. THE PATIENT IS IN NO DISTRESS AND IS DISCHARGED TO HOME WITH HIS SPOUSE BY PRIVATE CAR. PATIENT AMBULATED OFF UNIT REQUESTED.
== END 2019-07-05 11:30 | disposition home or self-care (01) | DRG 682 ==
LOC: D.ER 18:21 → D.M2 19:09
PROVIDERS: Family Medicine; ADMIT Internal Medicine Nephrology; ATTEND Internal Medicine Nephrology
DX: I12.0 Hypertensive chronic kidney disease with stage 5 chronic kidney disease or end stage renal disease (principal); N18.6 End stage renal disease; Z99.2 Dependence on renal dialysis; D63.1 Anemia in chronic kidney disease; E83.39 Other disorders of phosphorus metabolism; E87.5 Hyperkalemia; G25.81 Restless legs syndrome; G89.29 Other chronic pain; M54.9 Dorsalgia, unspecified; Z86.73 Personal history of transient ischemic attack (TIA), and cerebral infarction without residual deficits

== ENCOUNTER 2019-08-25 09:06 | Inpatient (IN) | payer MEDICARE, OTHER ==
[~2019-08-25] VITALS: Ht 167.6 cm; Wt 78.2 kg
[2019-08-25] VITALS (8 sets, daily range): BP systolic 149–175; BP diastolic 40–119; Ht 167.6 cm; Wt 78.2 kg
[~2019-08-25 09:06] MED LIST changes: +EPOGEN20000 U/ML SC; +LYRICA50 MG PO; +MACROBID100 MG PO; +TUMS X-STR300 MG PO; +VENOFER100 MG/5 M IV
[2019-08-25] MEDS ORDERED: NORVASC10 MG PO (09:32)
[2019-08-25] MEDS ORDERED: FERRIC CITRATE210 MG PO (09:35)
[2019-08-25 09:40] LABS: BASOPHILS 0.1 % (0-2); EOSINOPHILS 0.9 % (0-7); HEMATOCRIT 22.3 % (42.0-54.0); HEMOGLOBIN 7.6 g/dL (13.5-17.5); IMMATURE GRANULOCYTES 0.2 % (0-5); LYMPHOCYTES 3.5 % (15-50); MCH 29.5 pg (26.0-34.0); MCHC 34.1 g/dL (31.0-37.0); MCV 86.4 fL (80.0-100.0); MEAN PLATELET VOLUME 8.6 fL (7.4-10.4); MONOCYTES 3.1 % (2-11); NEUTROPHILS 92.2 % (40-80); PLATELET COUNT 79 10x3/uL (130-400); RBC 2.58 10x6/uL (4.20-6.10); RDW 14.4 % (11.5-14.5); WBC 12.7 10x3/uL (4.8-10.8)
[2019-08-25 09:50] LABS: APTT 28.7 SECONDS (22.8-39.4); INR 1.19 (0.85-1.17)
[2019-08-25 09:51] LABS: CALC OSMOLALITY 302 mosm/kg (275-300); CALCIUM 8.6 mg/dL (8.5-10.1); CARBON DIOXIDE 27.4 mmol/L (21.0-32.0); CHLORIDE - SERUM 101 mmol/L (98-107); CREATININE - SERUM 10.9 mg/dL (0.6-1.3); GLUCOSE 109 mg/dL (74-106); POTASSIUM - SERUM 5.5 mmol/L (3.5-5.1); SODIUM 140 mmol/L (136-145); UREA NITROGEN 77 mg/dL (7-18); eGFR NON AFRICAN AMERICAN 5 mL/min (90-120)
--- NOTE | 2019-08-25 10:05 | NUR ---
BLOOD CULTURES DRAWN BEFORE ANTIBIOTIC.
[2019-08-25 10:09] LABS: ALBUMIN 3.2 g/dL (3.4-5.0); ALKALINE PHOSPHATASE 75 U/L (30-120); ALT (SGPT) 16 U/L (10-68); BILIRUBIN - TOTAL 0.94 mg/dL (0.2-1.3); CKMB 4.2 U/L (0.0-3.6); CREATINE KINASE 183 UL (21-232); PROTEIN - SERUM 6.8 g/dL (6.4-8.2)
[2019-08-25 10:16] LABS: TROPONIN-I 0.063 ng/mL (0.000-0.060)
[2019-08-25 10:48] LABS: PLATELET ESTIMATE DECREASED
[2019-08-25 10:49] LABS: PRO BNP 105092 pg/mL (0-125); ROULEAUX OCC
--- NOTE | 2019-08-25 13:51 | NUR ---
REPORT CALLED TO JAYDA. ROOM IS DIRTY AT THIS TIME.
--- NOTE | 2019-08-25 15:53 | NUR ---
RECEIVED PT FROM ER. PT IS AAO AND UP AD JANETTE. RR EVEN AND UNLABORED ON 4L 02. VSS AND WNL. NO S/S OF DISTRESS NOTED. BLOOD CURRENTLY TRANSFUSING AT THIS TIME. APPROX 100ML LEFT TO INFUSE. QUICKSTART, HISTORY, AND MED REQ COMPLETE. PT DENIES ANY NEEDS. DIALYSIS CALLED FOR PT BUT PT DOES NOT WANT TO DIALIZE HERE. DIALYSIS AND PHYSICIAN NOTIFIED. WILL CTM.
--- NOTE | 2019-08-25 23:10 | NUR ---
pt out for CT.
[2019-08-26] VITALS: BP 167/51
[2019-08-26 05:13] VITALS: BP 159/45
[2019-08-26 06:31] LABS: ALBUMIN 2.9 g/dL (3.4-5.0); ANION GAP 18.6 mmol/L (8-16); BILIRUBIN - TOTAL 0.92 mg/dL (0.2-1.3); CALCIUM 7.8 mg/dL (8.5-10.1); CARBON DIOXIDE 26.9 mmol/L (21.0-32.0); CREATININE - SERUM 12.6 mg/dL (0.6-1.3); POTASSIUM - SERUM 5.5 mmol/L (3.5-5.1); PROTEIN - SERUM 5.9 g/dL (6.4-8.2)
[2019-08-26 07:41] LABS: BASOPHILS 0.2 % (0-2); IMMATURE GRANULOCYTES 0.2 % (0-5); LYMPHOCYTES 6.9 % (15-50); MCH 28.5 pg (26.0-34.0); MCHC 32.7 g/dL (31.0-37.0); MEAN PLATELET VOLUME 9.2 fL (7.4-10.4); MONOCYTES 5.1 % (2-11); NEUTROPHILS 84.6 % (40-80); PLATELET COUNT 77 10x3/uL (130-400); RBC 2.53 10x6/uL (4.20-6.10); RDW 14.7 % (11.5-14.5)
[2019-08-26 07:44] LABS: WBC 6.7 10x3/uL (4.8-10.8)
[2019-08-26 07:45] LABS: HEMOGLOBIN 7.2 g/dL (13.5-17.5)
[2019-08-26 09:00] VITALS: BP 194/55
--- NOTE | 2019-08-26 13:11 | NUR ---
PT LEAVING AMA, HAS A COURT DATE HE CANT MISS. MUÑIZ BLOCKER AUTOMATIC NOTIFIED WHO RELAYED TO [place] BUT HE WASN'T READY TO DISCHARGE. FINISHED DOSE OF IV ANTIBIOTICS TODAY. WILL GO HOME AND DIALYZE TONIGHT NORMAL. FORM SIGNED AND WITNESSED.
--- NOTE | 2019-08-26 17:59 | MORECARE ---
CASE MANAGEMENT DISCHARGE SUMMARY PATIENT: KRISTY SOUSA JR UNIT: [id number] ADM DATE: 08/25/19 AGE: 48 : 72 SEX: M ROOM/BED: D.2102 AUTHOR: SARBJIT,DOC PHYSICIAN: REFERRING PHYSICIAN: REGINALDO FELIPE MD DATE OF SERVICE: 08/26/19 Discharge Plan Patient Name: KRISTY SOUSA Facility: [facility]:[place] : 1970 Planned Disposition: Home Anticipated Discharge Date: 08/26/19 Discharge Date: 08/26/2019 Expected LOS: 1 Initial Reviewer: [email or web address] Initial Review Date: 08/26/2019 Generated: 08/26/19 6:58 pm Comments DCP- Discharge Planning Updated by [id number]: Hood Acharya on 08/26/19 4:[address] Patient Name: KRISTY SOUSA Admission Status: ER Accout number: [id number] Admission Date: 08-25-2019 : 1970 Admission Diagnosis: Attending: TERESITA Current LOS: 1 Anticipated DC Date: 08-26-2019 Planned Disposition: Home Primary Insurance: [employer] CHOICE PPO MCR ADVANT Discharge Planning Comments: CM MET WITH PT IN ROOM TO DISCUSS DISCHARGE PLANNING AND NEEDS. PT REPORTS LIVING AT HOME INDEPENDENTLY WITH SPOUSE. PT HAS HOME HEMODILAYSIS EQUIPMENT AT HOME. PT HAS NO OUTSIDE SERVICES ASSISTING IN THE HOME. CM DISCUSSED AVAILABILITY OF HOME HEALTH, REHAB SERVICES AND MEDICAL EQUIPMENT. PT DENIES DISCHARGE NEEDS, REPORTS HIS WILL PICK HER UP FOR DISCHARGE HOME. CM DISCUSSED ORDER TO ASSIST PT WITH COURT, PT REPORTS NEEDING NO ASSISTANCE, HE IS ONLY A WITNESS FOR COURT AND THE HEARING CANNOT BE RESET AGAIN. PT DENIES NEEDS FOR DISCHARGE. CM LATER ADVISED BY THEATRE PROGRAM DIRECTOR NURSE THAT PT LEFT AGAINST MEDICAL ADVICE TODAY. Knot Tying Operator: Hood Acharya DCPIA - Discharge Planning Initial Assessment Updated by [id number]: Hood Acharya on 08/26/19 5:52 pm * Is the patient Alert and Oriented? Yes * How many steps to enter\exit or inside your home? NONE * PCP DR. ORTEGA IN [facility] * Pharmacy [facility] IN [facility] * Preadmission Environment Home with Family * ADLs Independent * Equipment Other * Other Equipment HOME HEMODIALYSIS EQUIPMENT * List name and contact numbers for known caregivers / representatives who currently or will assist patient after discharge: LAURI SOUSA, SPOUSE, * Verbal permission to speak to the caregivers and representatives has been obtained from the patient. N/A * Community resources currently utilized Other * Please name any agencies selected above. HOME HEMODIALYSIS * Additional services required to return to the preadmission environment? No * Can the patient safely return to the preadmission environment? Yes * Has this patient been hospitalized within the prior 30 days at any hospital? No Patient Name: KRISTY SOUSA Page 81749 at 1759 All edits/amendments must be made on the electronic document DICTATION DATE: 08/26/191757 PILL PACKER: LAISHA 08/26/191757 RPT#: [id number] DC DATE:08/26/19 STATUS: DIS IN [facility] [address] [place] [address] END OF REPORT
[2019-08-27 07:13] LABS: HEPATITIS C ANTIBODY <0.1 S/CO RAT (0.0-0.9)
[2019-08-28 05:09] LABS: HEPATITIS BE ANTIGEN Negative (Negative)
[2019-08-28 13:10] LABS: HEPATITIS BE ANTIBODY Negative (Negative)
== END 2019-08-26 13:13 | disposition home or self-care (01) | DRG 193 ==
LOC: D.ER 09:06 → D.M2 10:26
PROVIDERS: Family Medicine; Internal Medicine Nephrology; ADMIT Internal Medicine Nephrology; ATTEND Internal Medicine Nephrology
PROC: 5A1D70Z Performance of Urinary Filtration, Intermittent, Less than 6 Hours Per Day (ICD-10-PCS; principal; 2019-08-26)
DX: J18.9 Pneumonia, unspecified organism (principal); J96.21 Acute and chronic respiratory failure with hypoxia; N18.6 End stage renal disease; I13.2 Hypertensive heart and chronic kidney disease with heart failure and with stage 5 chronic kidney disease, or end stage renal disease; N25.81 Secondary hyperparathyroidism of renal origin; E46 Unspecified protein-calorie malnutrition; Z99.2 Dependence on renal dialysis; D63.1 Anemia in chronic kidney disease; I50.9 Heart failure, unspecified; E83.51 Hypocalcemia; Z68.27 Body mass index [BMI] 27.0-27.9, adult

== ENCOUNTER 2019-09-25 08:41 | Outpatient (CLI) | payer MEDICARE, OTHER ==
[~2019-09-25] VITALS: Ht 167.6 cm; Wt 80.0 kg
[2019-09-25 09:16] LABS: BILIRUBIN - TOTAL 0.53 mg/dL (0.2-1.3); CALCIUM 7.9 mg/dL (8.5-10.1); CARBON DIOXIDE 30.3 mmol/L (21.0-32.0); CREATININE - SERUM 6.3 mg/dL (0.6-1.3); POTASSIUM - SERUM 5.3 mmol/L (3.5-5.1); PROTEIN - SERUM 6.6 g/dL (6.4-8.2)
[2019-09-25 09:21] LABS: BASOPHILS 0.3 % (0-2); EOSINOPHILS 6.2 % (0-7); IMMATURE GRANULOCYTES 1.2 % (0-5); LYMPHOCYTES 10.2 % (15-50); MCH 29.4 pg (26.0-34.0); MCHC 29.7 g/dL (31.0-37.0); MCV 98.9 fL (80.0-100.0); MEAN PLATELET VOLUME 8.9 fL (7.4-10.4); MONOCYTES 10.9 % (2-11); NEUTROPHILS 71.2 % (40-80); PLATELET COUNT 91 10x3/uL (130-400); RDW 15.8 % (11.5-14.5); WBC 3.2 10x3/uL (4.8-10.8)
[2019-09-25 09:26] LABS: HEMATOCRIT 17.5 % (42.0-54.0); HEMOGLOBIN 5.2 g/dL (13.5-17.5); RBC 1.77 10x6/uL (4.20-6.10)
[2019-09-25] MEDS ORDERED: LYRICA50 MG PO (09:29)
[2019-09-25 09:34] VITALS: Ht 167.6 cm; Wt 80.0 kg
[2019-09-25 09:34] LABS: APTT 33.8 SECONDS (22.8-39.4); INR 1.06 (0.85-1.17); PROTIME 13.8 SECONDS (11.6-15.0)
--- NOTE | 2019-09-25 09:54 | NUR ---
POSITIVE SCREEN FOR POINT OF CONTACT, NOTIFIED CARLOS SYED RN.
--- NOTE | 2019-09-25 09:55 | NUR ---
CRITICAL H&H CALLED TO [facility], NEW ORDERS RECEIVED TO TYPE & CROSS AND TRANSFUSE 1 UNIT OF PRBC.
--- NOTE | 2019-09-25 10:47 | NUR ---
REFUSING BLOOD TRANSFUSION AT THIS FACILITY, SINCE BLOOD TRANSFUSION IS BEING REFUSED PARACENTESIS CANCELLED. AMA PAPERS SIGNED AND OBTAINED.
== END 2019-09-25 10:53 | disposition home or self-care (01) ==
LOC: D.SP 08:41
PROVIDERS: Specialist; ATTEND Internal Medicine Nephrology
DX: R14.0 Abdominal distension (gaseous) (principal); R18.8 Other ascites; N18.6 End stage renal disease; Z53.9 Procedure and treatment not carried out, unspecified reason

== ENCOUNTER 2019-09-29 06:13 | Outpatient (CLI) | payer MEDICARE, OTHER ==
[~2019-09-29] VITALS: Ht 167.6 cm; Wt 80.9 kg
[2019-09-29 06:55] LABS: BASOPHILS 0.2 % (0-2); IMMATURE GRANULOCYTES 1.2 % (0-5); LYMPHOCYTES 10.8 % (15-50); MCH 29.1 pg (26.0-34.0); MCHC 30.5 g/dL (31.0-37.0); MCV 95.7 fL (80.0-100.0); MEAN PLATELET VOLUME 8.9 fL (7.4-10.4); MONOCYTES 7.9 % (2-11); NEUTROPHILS 72.9 % (40-80); PLATELET COUNT 90 10x3/uL (130-400); RDW 16.1 % (11.5-14.5); WBC 4.2 10x3/uL (4.8-10.8)
[2019-09-29 06:59] LABS: APTT 26.5 SECONDS (22.8-39.4); INR 0.97 (0.85-1.17); PROTIME 12.9 SECONDS (11.6-15.0)
[2019-09-29 07:00] LABS: HEMOGLOBIN 6.7 g/dL (13.5-17.5)
[2019-09-29 07:03] LABS: ALBUMIN 3.1 g/dL (3.4-5.0); ANION GAP 13.8 mmol/L (8-16); BILIRUBIN - TOTAL 0.71 mg/dL (0.2-1.3); CARBON DIOXIDE 27.4 mmol/L (21.0-32.0); CREATININE - SERUM 7.1 mg/dL (0.6-1.3); POTASSIUM - SERUM 5.2 mmol/L (3.5-5.1); PROTEIN - SERUM 6.3 g/dL (6.4-8.2)
[2019-09-29 07:37] VITALS: BP 142/77; Ht 167.6 cm; Wt 80.9 kg
== END 2019-09-29 09:50 | disposition home or self-care (01) ==
LOC: D.SP 06:13 → D.CT 09:00 → D.SP 09:00
PROVIDERS: Radiology Vascular & Interventional Radiology; ATTEND Internal Medicine Nephrology
DX: R14.0 Abdominal distension (gaseous) (principal); R18.8 Other ascites; I12.0 Hypertensive chronic kidney disease with stage 5 chronic kidney disease or end stage renal disease; N18.6 End stage renal disease; K21.9 Gastro-esophageal reflux disease without esophagitis; G62.9 Polyneuropathy, unspecified; Z86.73 Personal history of transient ischemic attack (TIA), and cerebral infarction without residual deficits; Z72.0 Tobacco use; Z99.2 Dependence on renal dialysis

== ENCOUNTER 2019-12-27 21:17 | Inpatient (IN) | payer MEDICARE, OTHER ==
[~2019-12-27] VITALS: Ht 167.6 cm; Wt 78.9 kg
[2019-12-27] MEDS ORDERED: OMNICEF300 MG PO (21:33)
[2019-12-27 21:53] LABS: HEMATOCRIT 29.3 % (42.0-54.0); LYMPHOCYTES 3.7 % (15-50); MCHC 34.1 g/dL (31.0-37.0); MCV 90.7 fL (80.0-100.0); MEAN PLATELET VOLUME 9.2 fL (7.4-10.4); NEUTROPHILS 90.7 % (40-80); RBC 3.23 10x6/uL (4.20-6.10); RDW 14.7 % (11.5-14.5); WBC 11.2 10x3/uL (4.8-10.8)
[2019-12-27 21:57] LABS: PLATELET COUNT 113 10x3/uL (130-400)
[2019-12-27 22:05] LABS: CALC OSMOLALITY 295 mosm/kg (275-300); CALCIUM 8.5 mg/dL (8.5-10.1); CARBON DIOXIDE 24.3 mmol/L (21.0-32.0); CHLORIDE - SERUM 95 mmol/L (98-107); CREATININE - SERUM 14.3 mg/dL (0.6-1.3); GLUCOSE 118 mg/dL (74-106); INR 1.2 (0.85-1.17); PROTIME 15.2 SECONDS (11.6-15.0); SODIUM 134 mmol/L (136-145); UREA NITROGEN 89 mg/dL (7-18); eGFR NON AFRICAN AMERICAN 4 mL/min (90-120)
[2019-12-27 22:30] LABS: ALBUMIN 2.7 g/dL (3.4-5.0); ALKALINE PHOSPHATASE 79 U/L (30-120); ALT (SGPT) 6 U/L (10-68); BILIRUBIN - TOTAL 0.78 mg/dL (0.2-1.3); CKMB 1.5 U/L (0.0-3.6); CREATINE KINASE 45 UL (21-232); PROTEIN - SERUM 7.2 g/dL (6.4-8.2)
[2019-12-27 22:32] LABS: TROPONIN-I 0.107 ng/mL (0.000-0.060)
[2019-12-27 22:54] LABS: PRO BNP 83772 pg/mL (0-125)
[2019-12-28] MEDS ORDERED: COREG12.5 MG PO (02:43)
--- NOTE | 2019-12-28 02:43 | NUR ---
RECEIVED REPORT FROM FARHANA HUERTA IN ER. ARRIVED TO FLOOR ON STRETCHER WITH DAUGHTER AT HIS SIDE. DAUGHTER APPEARS TO BE HIS CAREGIVER. IV TO RT FA WITH NS AT 50CC/HR. AVF TO LT ARM WITH GOOD BRUITT AND TRILL. ASSESSMENT COMPLETED.
[2019-12-28 02:59] VITALS: BP 173/87; BMI 28.1
--- NOTE | 2019-12-28 03:33 | NUR ---
ACCIDENTLY PULLED IV OUT. ASKED FOR SHOWER BEFORE NHAVING IT RESTARTED. RECIEVED HIS SHOWER AND RESTARTED 20 GA TO RT HAND SL.
[2019-12-28 05:13] LABS: HEMATOCRIT 27.2 % (42.0-54.0); HEMOGLOBIN 9.4 g/dL (13.5-17.5); MCH 31.4 pg (26.0-34.0); MCHC 34.6 g/dL (31.0-37.0); MEAN PLATELET VOLUME 9.4 fL (7.4-10.4); NEUTROPHILS 92.6 % (40-80); PLATELET COUNT 118 10x3/uL (130-400); RBC 2.99 10x6/uL (4.20-6.10); RDW 15.1 % (11.5-14.5); WBC 11.2 10x3/uL (4.8-10.8)
[2019-12-28 05:57] LABS: ANION GAP 23.5 mmol/L (8-16); CALCIUM 8.3 mg/dL (8.5-10.1); CARBON DIOXIDE 19.9 mmol/L (21.0-32.0); CREATININE - SERUM 15.1 mg/dL (0.6-1.3); POTASSIUM - SERUM 3.4 mmol/L (3.5-5.1)
[2019-12-28 06:27] LABS: TROPONIN-I 0.071 ng/mL (0.000-0.060)
[2019-12-28 09:00] VITALS: BP 200/94
--- NOTE | 2019-12-28 11:23 | NUR ---
PT TAKEN TO DIAYLYSIS VIA WHEELCHAIR CL IN REACH, SRX2.
[2019-12-28 13:12] VITALS: Ht 167.6 cm; Wt 78.9 kg
[2019-12-28 15:00] VITALS: BP 128/75
--- NOTE | 2019-12-28 19:30 | NUR ---
REPORT RECEIVED AND ROUNDING COMPLETE. PATIENT LAYING IN BED IN LOW FOWLERS, AT BEDSIDE, RIGHT HAND PIV RUNNING FLUIDS. PATIENT STATES HE CANT WAIT TO GO HOME BECAUSE HE DOES NOT WISH TO DO DIALYSIS HERE AGAIN. PATIENT STATES THEY TORE UP HIS ARM TODAY. PATIENT STATES HE FEELS WARM AND REQUESTED HIS TEMP TO BE TAKEN. NO DISTRESS NOTED, CALL LIGHT WITHIN REACH AND BED IN LOWEST LOCKED POSITION.
--- NOTE | 2019-12-28 19:46 | NUR ---
PATIENT HAS A FEVER OF 103. AT THIS TIME. TYLENOL GIVEN PER MAR
--- NOTE | 2019-12-28 20:36 | NUR ---
TEMP 100.0 AT RECHECK
[2019-12-28 21:21] VITALS: BP 174/71
[2019-12-29 00:39] VITALS: BP 157/74
--- NOTE | 2019-12-29 00:42 | NUR ---
RIGHT HAND PIV SORE AND BURNING, REMOVED PIV, CATH INTACT. PLACED NEW 20 GAUGE PIV 1 STICK, PATIENT TOLERATED WELL. CALL LIGHT WITHIN REACH BED IN LOWEST LOCKED POSITION
--- NOTE | 2019-12-29 04:23 | NUR ---
PATIENT HAS A FEVER OF 102.2, TREATING PER AUG. WILL RECHECK TEMP.
[2019-12-29 06:27] VITALS: BP 196/89
[2019-12-29 07:16] LABS: ALBUMIN 2.5 g/dL (3.4-5.0); ANION GAP 19.2 mmol/L (8-16); BILIRUBIN - TOTAL 0.59 mg/dL (0.2-1.3); CALCIUM 7.8 mg/dL (8.5-10.1); CARBON DIOXIDE 23.4 mmol/L (21.0-32.0); CREATININE - SERUM 11.6 mg/dL (0.6-1.3); MAGNESIUM - SERUM 2.3 mg/dL (1.8-2.4); POTASSIUM - SERUM 3.6 mmol/L (3.5-5.1); PROTEIN - SERUM 5.9 g/dL (6.4-8.2)
[2019-12-29 07:17] LABS: PHOSPHOROUS 9.5 mg/dL (2.5-4.9)
[2019-12-29 07:59] LABS: HEMATOCRIT 27.3 % (42.0-54.0); HEMOGLOBIN 9.2 g/dL (13.5-17.5); LYMPHOCYTES 3.4 % (15-50); MCH 31.1 pg (26.0-34.0); MCHC 33.7 g/dL (31.0-37.0); MCV 92.2 fL (80.0-100.0); MEAN PLATELET VOLUME 10.1 fL (7.4-10.4); NEUTROPHILS 90.2 % (40-80); PLATELET COUNT 99 10x3/uL (130-400); RBC 2.96 10x6/uL (4.20-6.10); RDW 14.8 % (11.5-14.5); WBC 8.7 10x3/uL (4.8-10.8)
--- NOTE | 2019-12-29 08:13 | NUR ---
DR ORELLANA HERE TO SEE PATIENT.
[2019-12-29 08:22] VITALS: BP 194/83
--- NOTE | 2019-12-29 09:29 | NUR ---
ECHO IN ROOM AT THIS TIME. WANTS SHOWER AND LINEN CHANGE. WILL DO AFTER ECHO.
[2019-12-29] MEDS ORDERED: ZITHROMAX250 MG PO (09:42)
--- NOTE | 2019-12-29 09:55 | NUR ---
PATIENT IV SITE WRAPPED FOR SHOWER.
[2019-12-29 11:11] LABS: HEP B CORE AB TOTAL Negative (Negative); HEPATITIS C ANTIBODY 0.3 S/CO RAT (0.0-0.9)
[2019-12-29 11:52] LABS: PLATELET ESTIMATE DECREASED
--- NOTE | 2019-12-29 13:01 | MORECARE ---
CASE MANAGEMENT DISCHARGE SUMMARY PATIENT: KRISTY SOUSA JR UNIT: [id number] ADM DATE: 12/27/19 AGE: 49 : 72 SEX: M ROOM/BED: D.2103 AUTHOR: HANS SCHAFFER PHYSICIAN: REFERRING PHYSICIAN: ALEK MANCINI MD DATE OF SERVICE: 12/29/19 Discharge Plan Patient Name: KRISTY SOUSA [facility] [facility] 1970 Planned Disposition: Home Anticipated Discharge Date: 12/29/19 Discharge Date: 12/29/2019 Expected LOS: 2 Initial Reviewer: [email or web address] Initial Review Date: 12/28/2019 Generated: 12/29/19 2:00 pm Comments DCP- Discharge Planning Updated by [id number]: Saritha Lu on 12/28/19 11:[address] 49yo wm presented last night to the ER stating that he had been dx with PNA this past saturday. States that he had been having several days of F/C, fatigue, malaise, weakness, prod cough. PCCP started him on Omnicef on Saturday, has taken it as rx for two days now. Has ESRD and gets HD in home. States that he has no set dialysis schedule and does when he feels like he needs it. Patient Name: KRISTY SOUSA Page 64317 at 1301 All edits/amendments must be made on the electronic document DICTATION DATE: 12/29/19 1300 CARBONATION TESTER: LAISHA 12/29/19 1300 RPT#: [id number] DC DATE:12/29/19 STATUS: DIS IN [facility] [address] [place] [address] END OF REPORT
--- NOTE | 2019-12-29 13:09 | MORECARE ---
CASE MANAGEMENT DISCHARGE SUMMARY PATIENT: KRISTY SOUSA JR UNIT: [id number] ADM DATE: 12/27/19 AGE: 49 : 72 SEX: M ROOM/BED: D.2103 AUTHOR: SARBJIT,DOC PHYSICIAN: REFERRING PHYSICIAN: ALEK MANCINI MD DATE OF SERVICE: 12/29/19 Discharge Plan Patient Name: KRISTY SOUSA Facility: [facility]:[place] : 1970 Planned Disposition: Home Anticipated Discharge Date: 12/29/19 Discharge Date: 12/29/2019 Expected LOS: 2 Initial Reviewer: [id number] Initial Review Date: 12/28/2019 Generated: 12/29/19 2:08 pm Comments DCP- Discharge Planning Updated by [email or web address]: Saritha Lu on 12/28/19 11:[address] 49yo wm presented last night to the ER stating that he had been dx with PNA this past saturday. States that he had been having several days of F/C, fatigue, malaise, weakness, prod cough. PCCP started him on Omnicef on Saturday, has taken it as rx for two days now. Has ESRD and gets HD in home. States that he has no set dialysis schedule and does when he feels like he needs it. DCPIA - Discharge Planning Initial Assessment Updated by [email or web address]: Saritha Lu on 12/29/19 1:04 pm * How many steps to enter\exit or inside your home? * PCP [facility] * [facility] * Preadmission Environment Home with Family * ADLs Independent * Equipment None * Other Equipment Home HD equipment * List name and contact numbers for known caregivers / representatives who currently or will assist patient after discharge: Luma Sousa () [phone] * Verbal permission to speak to the caregivers and representatives has been obtained from the patient. Yes * Community resources currently utilized None * Please name any agencies selected above. NA * Additional services required to return to the preadmission environment? No * Can the patient safely return to the preadmission environment? Yes * Has this patient been hospitalized within the prior 30 days at any hospital? No Last DP export: 12/29/19 12:01 p Patient Name: KRISTY SOUSA Page 14998 at 1309 All edits/amendments must be made on the electronic document DICTATION DATE: 12/29/198 CHILDREN'S COUNSELOR: LAISHA 12/29/19 1308 RPT#: [id number] DC DATE:12/29/19 STATUS: DIS IN [facility] [address] [place] [address] END OF REPORT
--- NOTE | 2019-12-29 13:17 | CN ---
PATIENT NAME:KRISTY SOUSA JR MEDICAL RECORD: [id number] : [birth year] LOCATION:[place] D.2103 ADMIT DATE: 12/27/19 ACCOUNT: [id number] CONSULTING PHYSICIAN: TRINA ORELLANA MD REFERRING PHYSICIAN: ALEK MANCINI MD DATE OF CONSULTATION: 12/29/2019 HISTORY OF PRESENT ILLNESS: A 49-year-old gentleman with history of hypertension, end-stage renal disease, on dialysis at home, admitted with pneumonitis, fever, shaking chills, cough, about a 3-day course before admission, feeling improving at this point, clinically although did have a temperature last night, noted to have an elevated cardiac enzymes as well as BNP. We are asked to see him concerning cardiovascular status. PAST MEDICAL HISTORY: Includes; 1. History of hypertension. 2. Chronic renal insufficiency. ALLERGIES: None known. MEDICATIONS: Chronically include Epogen 42546 with dialysis, Cardura 4 mg p.o. t.i.d., lisinopril 40 b.i.d., hydralazine 100 t.i.d., amlodipine 10 every day, carvedilol 12.5 b.i.d., Lyrica 50 every day, Challenge 10/325 one every 6 hours p.r.n. SOCIAL HISTORY: Nonsmoker, nondrinker. Does exercise on a regular basis, takes care of his ADLs at home. REVIEW OF SYSTEMS: The patient reports easy bruising but reports no swollen glands. The patient reports no fever, no night sweats, no significant weight gain, no significant weight loss. No significant exercise tolerance. The patient reports no dry eyes, no irritation, no vision change. Patient reports no difficulty hearing and no ear pain. Patient reports no frequent nose bleeds or nose and sinus problems. Patient reports on arm pain on exertion. No shortness of breath while lying down. No history of heart murmur. Patient reports no cough, no wheezing or coughing up blood. Patient reports no abdominal pain, no vomiting. Normal appetite. No diarrhea and not vomiting blood. No nausea and no constipation. Patient reports no incontinence. No difficulty urinating. No hematuria. No increased frequency. Patient reports no muscle aches. No weakness, no arthralgias, no back pain. No swelling of the extremities. Patient reports no abnormal mole, no jaundice, no rashes. Reports no loss of consciousness. No weakness and no numbness. No seizures, dizziness, or headaches. The patient reports no depression, no sleep disturbance, feeling safe in a relationship and no alcohol abuse. Patient reports on fatigue. Reports no runny nose or sinus pressure. No itching, no hives, and no frequent sneezing. PHYSICAL EXAMINATION: GENERAL: Pleasant gentleman in no acute distress, appears stated age. VITAL SIGNS: Blood pressure 194/83, pulse 72 and regular. HEENT: Normocephalic, atraumatic. NECK: No bruits noted. HEART: Regular, II/ systolic ejection murmur. S4 gallop is noted. LUNGS: Good air excursion. ABDOMEN: Soft, nontender. CONSULT REPORT [id number] KRISTY SOUSA JR EXTREMITIES: Pulses are well preserved, 2+ with no edema. ASSESSMENT AND PLAN: EKG shows an incomplete right bundle, LVH, nonspecific ST-T changes, probably demand ischemia type situation with pneumonitis, hypertension, etc. We will check echocardiographic study for focal wall motion abnormalities as well assess systolic murmur. Otherwise, agree with current management. Further recommendations based on clinical course. TRANSINT:[id number] Voice Confirmation ID: [id number] DOCUMENT ID: [id number] TRINA ORELLANA MD at 1317 CC: [id number] DICTATION DATE: 12/29/19 0839 DOOR TO DOOR SALES REPRESENTATIVE: 12/29/19 1015 DIS IN 12/29/19 [facility] [address] [place] [id number]
--- NOTE | 2019-12-30 08:08 | EC ---
PATIENT:KRISTY SOUSA JR DATE OF SERVICE: 12/27/19 SEX: M MEDICAL RECORD: [id number] DATE OF : [birth year] LOCATION:D.M2 D.210 AGE OF PATIENT: 49 ADMISSION DATE: 12/27/19 REFERRING PHYSICIAN: INTERPRETING PHYSICIAN: TRINA ORELLANA MD ECHOCARDIOGRAM REPORT ECHO CHARGES 4 ECHO COMPLETE Date: 12/29/19 CLINICAL DIAGNOSIS: CHF ECHOCARDIOGRAPHIC MEASUREMENTS (adult normal given) AC root (d.<3.7cm) 3.1 cm LV Septum d (<1.2 cm> 1.4 cm Valve Excursion 1.4 cm LV Septum (systole) 2.0 cm Left Atria (s.<4.0cm> 4.9 cm LVPW d(<1.2cm) 0.8 cm RV (d.<2.3cm) 2.9 cm LVPW (sytole) 1.1 cm LV diastole(<5.6CM) 6.3 cm MV E-F(>70mm/sec) cm LV systole 4.7 cm LVOT Diameter 1.7 cm MV exc.(>10mm) cm Est.ejection fraction (50-75%) % DOPPLER: LVIT cm/sec A 92 cm/sec E 97 cm/sec LA cm/sec RVSP 22.9 mmHg LVOT 137 cm/sec AOP1/2T m/s Asc. Ao 173 cm/sec RVOT 69 cm/sec RA cm/sec PA 89 cm/sec AV Gradient Peak 12.0 mmHg AV Mean 6.2 mmHg AV Area 1.8 cm MV Gradient Peak 5.9 mmHg MV Mean 3.0 mmHg MV Area cm COMMENTS: Senior Corporate Strategy Manager: Jeremias [facility] Screening Technician: 3 Dr. Miller TAPE# PACS Pericardial Effusion Y DATE OF SERVICE: Adequate 2D, color flow imaging, spectral Doppler, and M-Mode. LVH is present. LV internal dimension is normal. Wall motion is normal. EF is greater than or equal to 55%. Aortic valve is calcified and sclerotic; however, peak gradient of only 12 mmHg, putting this in very early range. Left atrium is dilated at 4.9 cm. Mitral valve shows no prolapse. Trace MR. Right side grossly normal. Trace TR. ECHOCARDIOGRAM REPORT [id number] KRISTY SOUSA NTS:[id number] Voice Confirmation ID: [id number] DOCUMENT ID: [id number] TRINA ORELLANA MD at 0808 CC: [id number] DICTATION DATE: 12/29/19 142 BARREL RIFLER HOOK: 12/29/19 1845 DIS IN 12/29/19 [facility] [address] [place] [address]
== END 2019-12-29 12:15 | disposition home or self-care (01) | DRG 193 ==
LOC: D.ER 21:17 → D.M2 23:26
PROVIDERS: Emergency Medicine; Internal Medicine; ADMIT Family Medicine Adult Medicine; ATTEND Family Medicine Adult Medicine
PROC: 5A1D70Z Performance of Urinary Filtration, Intermittent, Less than 6 Hours Per Day (ICD-10-PCS; principal; 2019-12-28)
DX: J18.9 Pneumonia, unspecified organism (principal); N18.6 End stage renal disease; I13.2 Hypertensive heart and chronic kidney disease with heart failure and with stage 5 chronic kidney disease, or end stage renal disease; I50.9 Heart failure, unspecified; Z99.2 Dependence on renal dialysis; E78.5 Hyperlipidemia, unspecified; D63.1 Anemia in chronic kidney disease; D69.6 Thrombocytopenia, unspecified

== ENCOUNTER 2020-01-24 21:19 | Emergency (ER) | payer MEDICARE, OTHER ==
[~2020-01-24] VITALS: Ht 167.6 cm; Wt 2.3 kg
[~2020-01-24 21:19] MED LIST changes: +COREG12.5 MG PO; +OMNICEF300 MG PO; +ZITHROMAX250 MG PO
[2020-01-24 21:24] VITALS: Ht 167.6 cm; Wt 2.3 kg
[2020-01-24] MEDS ORDERED: AUGMENTIN 875-11 TAB PO (21:28)
[2020-01-24 22:10] LABS: BASOPHILS 0.1 % (0-2); EOSINOPHILS 2.8 % (0-7); HEMATOCRIT 22.6 % (42.0-54.0); IMMATURE GRANULOCYTES 0.5 % (0-5); LYMPHOCYTES 5.3 % (15-50); MCH 30.2 pg (26.0-34.0); MCHC 30.1 g/dL (31.0-37.0); MCV 100.4 fL (80.0-100.0); MEAN PLATELET VOLUME 8.7 fL (7.4-10.4); MONOCYTES 1.6 % (2-11); NEUTROPHILS 89.7 % (40-80); RBC 2.25 10x6/uL (4.20-6.10); RDW 17.7 % (11.5-14.5); WBC 7.9 10x3/uL (4.8-10.8)
[2020-01-24 22:16] LABS: HEMOGLOBIN 6.8 g/dL (13.5-17.5); PLATELET COUNT 129 10x3/uL (130-400)
[2020-01-24 22:18] LABS: ANION GAP 19.1 mmol/L (8-16); APTT 36.1 SECONDS (22.8-39.4); CALCIUM 7.1 mg/dL (8.5-10.1); CARBON DIOXIDE 27.5 mmol/L (21.0-32.0); CREATININE - SERUM 12.2 mg/dL (0.6-1.3); INR 1.14 (0.85-1.17); POTASSIUM - SERUM 5.6 mmol/L (3.5-5.1); PROTIME 14.5 SECONDS (11.6-15.0)
[2020-01-24 22:24] LABS: ALBUMIN 2.9 g/dL (3.4-5.0); BILIRUBIN - TOTAL 0.51 mg/dL (0.2-1.3); C-REACTIVE PROTEIN 6.6 mg/dL (0.0-0.9); PROTEIN - SERUM 7.3 g/dL (6.4-8.2)
[2020-01-24 22:32] LABS: D-DIMER-QUANTITATIVE 8.37 ug/mLFEU (0.20-0.54)
[2020-01-25] MEDS ORDERED: OMNICEF300 MG PO (04:11)
[2020-01-25] MEDS ORDERED: CLEOCIN HCL300 MG PO (04:11)
[2020-01-25 04:26] VITALS: BP 132/89
== END 2020-01-25 04:26 | disposition home or self-care (01) ==
LOC: D.ER 21:19
PROVIDERS: Family Medicine
DX: I12.0 Hypertensive chronic kidney disease with stage 5 chronic kidney disease or end stage renal disease (principal); N18.6 End stage renal disease; Z99.2 Dependence on renal dialysis; L03.114 Cellulitis of left upper limb; I11.0 Hypertensive heart disease with heart failure; I50.9 Heart failure, unspecified; Z86.73 Personal history of transient ischemic attack (TIA), and cerebral infarction without residual deficits; K21.9 Gastro-esophageal reflux disease without esophagitis; Z99.81 Dependence on supplemental oxygen